=== PATIENT | male | born 1960 ===

== ENCOUNTER → 2018-04-07 | Outpatient (CLI) | payer BC ==
[~2018-04-07] MED LIST: ALBU90OI INH; Advair Hfa 230-12 GM; Aspirin EC81 MG PO; Flomax0.4 MG PO; LOSA25 PO; METO25ER PO; METO50 PO
[2018-04-07 15:02] LABS: BASOPHILS ABSOLUTE AUTO 0.03 K/mm3 (0.00-0.23); BASOPHILS PERCENT AUTO 1 % (0-2); EOSINOPHILS ABSOLUTE AUTO 0.05 K/mm3 (0.00-0.68); EOSINOPHILS PERCENT AUTO 1 % (0-6); Hematocrit 47.1 % (37.0-53.0); IMMATURE GRAN ABSOLUTE AUTO 0.02 K/mm3 (0.00-0.10); IMMATURE GRAN PERCENT AUTO 0 % (0-1); LYMPHOCYTES ABSOLUTE AUTO 1.79 K/mm3 (0.84-5.20); LYMPHOCYTES PERCENT AUTO 34 % (21-46); MONOCYTES PERCENT AUTO 10 % (4-13); Mean Corpuscular HGB 32.1 pg (26.0-34.0); Mean Corpuscular Volume 94 fL (80-100); Mean Platelet Volume 9.2 fL (9.1-12.4); NEUTROPHILS ABSOLUTE AUTO 2.89 K/mm3 (1.96-9.15); NEUTROPHILS PERCENT AUTO 55 % (41-73); Platelet Count 228 K/mm3 (150-400); RDW Coefficient Variation 12.8 % (11.7-14.2); RDW Standard Deviation 44.2 fL (35.1-46.3); Red Blood Cell Count 4.99 M/mm3 (4.30-5.90); White Blood Cell Count 5.28 K/mm3 (4.00-11.30)
[2018-04-07 16:20] LABS: Albumin, Blood 3.5 g/dL (3.4-5.0); Albumin/Globulin Ratio 0.9 (0.8-1.8); Alk Phos 55 U/L (50-136); Anion Gap 9 mmol/L (6-16); Aspartate Aminotrans (AST/SGOT 52 U/L (12-37); Bilirubin, Total 0.3 mg/dL (0.1-1.0); Blood Urea Nitrogen 14 mg/dL (8-24); Bun/Creatinine Ratio 17.6 (12.0-20.0); CHOL/HDL RATIO 3.8; CO2, Blood 24 mmol/L (21-32); Calcium, Blood 7.6 mg/dL (8.5-10.1); Chloride, Blood 110 mmol/L (98-108); Cholesterol 158 mg/dL (50-200); Free Thyroxine 0.91 ng/dL (0.70-1.60); Globulin, Blood 3.9 g/dL (2.2-4.0); Glomerular Filtration Rate >60 (60-); Glucose, Blood 84 mg/dL (70-99); HDL Cholesterol 42 mg/dL (>39); LDL/HDL RATIO 1.9; Low Density Lipoprotein Chol 80 mg/dL (0-110); Potassium, Blood 3.9 mmol/L (3.5-5.5); Sodium, Blood 143 mmol/L (136-145); Total Protein, Blood 7.4 g/dL (6.4-8.2); Triglycerides 178 mg/dL (30-160); Very Low Density Lipoprot Chol 35 mg/dL (6-32)
[2018-04-07 16:32] LABS: Alanine Aminotransfer (ALT/SGP 58 U/L (12-78)
[2018-04-07 17:13] LABS: Appearance, Urine Turbid (Clear); Bilirubin, Urine Neg (Neg); Blood, Urine Neg (Neg); Color, Urine Yellow (P-Yellow); Glucose Qualitative, Urine Neg (Neg); Ketones, Urine Neg (Neg); Leukocyte Esterase, Urine Neg (Neg); Nitrite, Urine Neg (Neg); Protein, Urine Neg (Neg); Urobilinogen, Urine NORM (Normal)
[2018-04-07 17:21] LABS: Bacteria Not Seen /hpf; Red Blood Cells, Urine Not Seen /hpf (0-2); Squamous Epithelial Cells Not Seen /hpf (Few); White Blood Cells, Urine Not Seen /hpf (0-5)
== END | disposition home or self-care (01) ==
LOC: LAB 14:39 → LAB SHORT 14:39
PROVIDERS: Hospitalist
DX: Z12.5 Encounter for screening for malignant neoplasm of prostate (principal); I10 Essential (primary) hypertension; R73.9 Hyperglycemia, unspecified; R30.0 Dysuria
CPT/HCPCS: 80053; 80061; 81001; 83036; 84439; 84443; 85025; G0103

== ENCOUNTER 2018-04-28 22:01 | Emergency (ER) | payer BC ==
[~2018-04-28] VITALS: Ht 175.3 cm; Wt 83.9 kg
[~2018-04-28 22:01] MED LIST changes: -Flomax0.4 MG PO; -METO25ER PO
[2018-04-28 22:42] LABS: Source, Urine Clean Catch
[2018-04-28 22:56] LABS: Bilirubin, Urine Neg (Neg); Blood, Urine 5+ (Neg); Glucose Qualitative, Urine Neg (Neg); Ketones, Urine Neg (Neg); Leukocyte Esterase, Urine Neg (Neg); Nitrite, Urine Neg (Neg); Protein, Urine Neg (Neg); Specific Gravity, Urine 1.005 (1.003-1.022); Urobilinogen, Urine NORM (Normal)
[2018-04-28 23:09] LABS: Appearance, Urine Clear (Clear); Color, Urine Yellow (P-Yellow)
[2018-04-28] MEDS ORDERED: METO25ER PO (23:15)
[2018-04-28 23:29] LABS: White Blood Cells, Urine 0-2 /hpf (0-5)
[2018-04-28 23:30] LABS: Bacteria Few /hpf; Squamous Epithelial Cells Rare /hpf (Few)
[2018-04-28] MEDS ORDERED: Flomax0.4 MG PO (23:41)
== END 2018-04-28 23:53 | disposition home or self-care (01) ==
LOC: ER 22:01
PROVIDERS: Emergency Medicine
DX: R33.9 Retention of urine, unspecified (principal); J45.909 Unspecified asthma, uncomplicated; I10 Essential (primary) hypertension; Z79.899 Other long term (current) drug therapy
CPT/HCPCS: 51702; 81001; 99283

== ENCOUNTER 2020-11-24 07:15 | Day surgery (SDC) | payer OTHER ==
[~2020-11-24 07:15] MED LIST changes: +AMBIEN10 MG PO; +Ativan1 MG PO; +Flomax0.4 MG PO; +LOSARTAN POTASS50 M1 PO; +METO25ER PO; +PARO20 PO; +POTA10T PO; +TAMS.4ER PO
--- NOTE | 2020-11-24 08:02 | NUR ---
History, Chart, Medications and Allergies reviewed before start of procedure. Lungs clear T/O to Auscultation. Pre-Op teaching done. Pt verbalizes understanding. Patient States Post-Procedure ride home has been arranged. Patient states colon prep results clear. PT REPORTS HAVING INCREASED DIZZINESS AND FEELING DEHYDRATED.
--- NOTE | 2020-11-24 08:52 | NUR ---
11/24/20 0852 Liborio Forbes Bite Block Placed. PATIENT DETERMINED TO BE ASA APPROPRIATE FOR PROPOFOL SEDATION PRIOR TO START OF PROCEDURE BY DR. LEON. 3-LEAD EKG REVIEWED WITH PHYSICIAN PRIOR TO START OF PROCEDURE. Patient to ENDO 1 History, Chart, Medications and Allergies reviewed before start of procedure. MONITOR INTACT WITH CONTINUOUS PULSE OXIMETRY AND INTERMITTENT BP. O2 VIA N/C INTACT THROUGHOUT SEDATION/PROCEDURE.
--- NOTE | 2020-11-24 09:55 | NUR ---
TOOK PATIENT TO STEP WITH RN AND STARTED RECOVERY
--- NOTE | 2020-11-24 10:26 | NUR ---
Discharge instructions reviewed with patient. Patient verbalizes understanding. Copy given to patient to take home. Patient States Post-Procedure ride home has been arranged. Discharged via wheelchair to private car for ride home.
== END 2020-11-24 23:08 | disposition home or self-care (01) ==
LOC: ORSCMMR 07:15 → ORD 09:00 → ORSCMMR 09:00
PROVIDERS: Student in an Organized Health Care Education/Training Program
PROC: 0DB78ZX Excision of Stomach, Pylorus, Via Natural or Artificial Opening Endoscopic, Diagnostic (ICD-10-PCS; principal; 2020-11-24 09:00)
PROC: 0DB98ZX Excision of Duodenum, Via Natural or Artificial Opening Endoscopic, Diagnostic (ICD-10-PCS; principal; 2020-11-24 09:00)
PROC: 0DB48ZX Excision of Esophagogastric Junction, Via Natural or Artificial Opening Endoscopic, Diagnostic (ICD-10-PCS; principal; 2020-11-24 09:00)
PROC: 0DBE8ZX Excision of Large Intestine, Via Natural or Artificial Opening Endoscopic, Diagnostic (ICD-10-PCS; principal; 2020-11-24 09:00)
DX: R19.7 Diarrhea, unspecified (principal); R63.0 Anorexia; K29.80 Duodenitis without bleeding; K29.70 Gastritis, unspecified, without bleeding; K20.90 Esophagitis, unspecified without bleeding; B96.81 Helicobacter pylori [H. pylori] as the cause of diseases classified elsewhere; B37.81 Candidal esophagitis; K44.9 Diaphragmatic hernia without obstruction or gangrene; I10 Essential (primary) hypertension; J45.909 Unspecified asthma, uncomplicated; F41.9 Anxiety disorder, unspecified; Z79.899 Other long term (current) drug therapy
CPT/HCPCS: 88305; 88312; 88342; J2704; J7120

== ENCOUNTER → 2021-03-29 | Outpatient (CLI) | payer OTHER | END | disposition home or self-care (01) | LOC: LAB SHORT 09:45 | PROVIDERS: Hospitalist | DX: R97.20 Elevated prostate specific antigen [PSA] (principal) | CPT/HCPCS: G0103 ==

== ENCOUNTER → 2021-05-17 | Outpatient (CLI) | payer OTHER ==
[2021-05-17 16:46] LABS: Alanine Aminotransfer (ALT/SGP 94 U/L (12-78); Albumin/Globulin Ratio 0.8 (0.8-1.8); Alk Phos 99 U/L (50-136); Anion Gap 8 mmol/L (6-16); Aspartate Aminotrans (AST/SGOT 163 U/L (12-37); Bilirubin, Total 1.2 mg/dL (0.1-1.0); Blood Urea Nitrogen 13 mg/dL (8-24); Bun/Creatinine Ratio 10.7 (12.0-20.0); CO2, Blood 30 mmol/L (21-32); Calcium, Blood 6.7 mg/dL (8.5-10.1); Chloride, Blood 109 mmol/L (98-108); Creatinine, Blood 1.21 mg/dL (0.60-1.20); Ethanol (Alcohol), Blood, Med 296 mg/dL; Globulin, Blood 3.7 g/dL (2.2-4.0); Glomerular Filtration Rate >60 (60-); Glucose, Blood 112 mg/dL (70-99); Potassium, Blood 2.8 mmol/L (3.5-5.5); Sodium, Blood 147 mmol/L (136-145); Total Protein, Blood 6.7 g/dL (6.4-8.2)
[2021-05-17 17:12] LABS: BASOPHILS ABSOLUTE AUTO 0.04 K/mm3 (0.00-0.23); BASOPHILS PERCENT AUTO 1 % (0-2); EOSINOPHILS ABSOLUTE AUTO 0.04 K/mm3 (0.00-0.68); EOSINOPHILS PERCENT AUTO 1 % (0-6); Hematocrit 39.1 % (37.0-53.0); Hemoglobin 13.5 g/dL (13.5-17.5); IMMATURE GRAN ABSOLUTE AUTO 0.05 K/mm3 (0.00-0.10); IMMATURE GRAN PERCENT AUTO 1 % (0-1); LYMPHOCYTES ABSOLUTE AUTO 1.72 K/mm3 (0.84-5.20); LYMPHOCYTES PERCENT AUTO 21 % (21-46); MONOCYTES ABSOLUTE AUTO 0.81 K/mm3 (0.16-1.47); MONOCYTES PERCENT AUTO 10 % (4-13); Mean Corpuscular HGB 33.6 pg (26.0-34.0); Mean Corpuscular HGB Conc 34.5 g/dL (31.5-36.5); Mean Corpuscular Volume 97 fL (80-100); Mean Platelet Volume 10.2 fL (9.1-12.4); NEUTROPHILS ABSOLUTE AUTO 5.44 K/mm3 (1.96-9.15); NEUTROPHILS PERCENT AUTO 67 % (41-73); Platelet Count 135 K/mm3 (150-400); RDW Coefficient Variation 13.2 % (11.7-14.2); RDW Standard Deviation 47.8 fL (35.1-46.3); Red Blood Cell Count 4.02 M/mm3 (4.30-5.90)
== END ==
LOC: LAB 11:00 → LAB SHORT 11:00
PROVIDERS: Hospitalist
DX: I10 Essential (primary) hypertension (principal); F10.10 Alcohol abuse, uncomplicated
CPT/HCPCS: 80053; 85025; G0480

== ENCOUNTER 2021-08-01 16:11 | Emergency (ER) | payer OTHER ==
[~2021-08-01] VITALS: Ht 175.3 cm; Wt 78.0 kg
[2021-08-01 17:32] LABS: BASOPHILS ABSOLUTE AUTO 0.04 K/mm3 (0.00-0.23); BASOPHILS PERCENT AUTO 1 % (0-2); EOSINOPHILS ABSOLUTE AUTO 0.05 K/mm3 (0.00-0.68); EOSINOPHILS PERCENT AUTO 1 % (0-6); Hematocrit 41.3 % (37.0-53.0); Hemoglobin 13.9 g/dL (13.5-17.5); IMMATURE GRAN ABSOLUTE AUTO 0.02 K/mm3 (0.00-0.10); IMMATURE GRAN PERCENT AUTO 0 % (0-1); LYMPHOCYTES ABSOLUTE AUTO 1.28 K/mm3 (0.84-5.20); LYMPHOCYTES PERCENT AUTO 18 % (21-46); MONOCYTES ABSOLUTE AUTO 0.75 K/mm3 (0.16-1.47); MONOCYTES PERCENT AUTO 10 % (4-13); Mean Corpuscular HGB 34.2 pg (26.0-34.0); Mean Corpuscular HGB Conc 33.7 g/dL (31.5-36.5); Mean Corpuscular Volume 102 fL (80-100); Mean Platelet Volume 8.9 fL (9.1-12.4); NEUTROPHILS ABSOLUTE AUTO 5.11 K/mm3 (1.96-9.15); NEUTROPHILS PERCENT AUTO 70 % (41-73); Platelet Count 161 K/mm3 (150-400); RDW Coefficient Variation 12.5 % (11.7-14.2); RDW Standard Deviation 47.2 fL (35.1-46.3); Red Blood Cell Count 4.07 M/mm3 (4.30-5.90); White Blood Cell Count 7.25 K/mm3 (4.00-11.30)
[2021-08-01 17:51] LABS: Alanine Aminotransfer (ALT/SGP 49 U/L (12-78); Albumin, Blood 2.7 g/dL (3.4-5.0); Albumin/Globulin Ratio 0.6 (0.8-1.8); Alk Phos 85 U/L (50-136); Anion Gap 3 mmol/L (6-16); Aspartate Aminotrans (AST/SGOT 85 U/L (12-37); Bilirubin, Total 0.6 mg/dL (0.1-1.0); Blood Urea Nitrogen 17 mg/dL (8-24); Bun/Creatinine Ratio 15.5 (12.0-20.0); CO2, Blood 29 mmol/L (21-32); Calcium, Blood 8.8 mg/dL (8.5-10.1); Chloride, Blood 104 mmol/L (98-108); Globulin, Blood 4.9 g/dL (2.2-4.0); Glomerular Filtration Rate >60 (60-); Glucose, Blood 134 mg/dL (70-99); Potassium, Blood 4.7 mmol/L (3.5-5.5); Sodium, Blood 136 mmol/L (136-145); Total Protein, Blood 7.6 g/dL (6.4-8.2)
[2021-08-01 17:56] LABS: Free Thyroxine 1.17 ng/dL (0.70-1.60)
[2021-08-01 19:26] LABS: U Amphetamine Screen DETECTED; U Barbituate Screen Not Detected; U Benzodiazapine Screen DETECTED; U Buprenorphine Screen Not Detected; U Cannabinoids Screen Not Detected; U Cocaine Screen Not Detected; U Methadone Screen Not Detected; U Methamphetamine Screen DETECTED; U Opiates Screen Not Detected; U Oxycodone Screen DETECTED; U Phencyclidine Screen Not Detected; U Propoxyphene Screen Not Detected
== END 2021-08-01 20:43 | disposition home or self-care (01) ==
LOC: ER 16:11
PROVIDERS: Physician Assistant
DX: R41.0 Disorientation, unspecified (principal); T40.2X5A Adverse effect of other opioids, initial encounter; T42.4X5A Adverse effect of benzodiazepines, initial encounter; R82.5 Elevated urine levels of drugs, medicaments and biological substances; J45.909 Unspecified asthma, uncomplicated; I10 Essential (primary) hypertension; F41.8 Other specified anxiety disorders; Z79.899 Other long term (current) drug therapy; Y92.9 Unspecified place or not applicable
CPT/HCPCS: 36415; 70450; 80053; 83735; 84439; 85025; G0480

== ENCOUNTER → 2022-05-02 | Outpatient (CLI) | payer OTHER ==
[2022-05-02 16:14] LABS: BASOPHILS ABSOLUTE AUTO 0.02 K/mm3 (0.00-0.23); BASOPHILS PERCENT AUTO 0 % (0-2); EOSINOPHILS ABSOLUTE AUTO 0.07 K/mm3 (0.00-0.68); EOSINOPHILS PERCENT AUTO 1 % (0-6); Hematocrit 40.6 % (37.0-53.0); Hemoglobin 14.1 g/dL (13.5-17.5); IMMATURE GRAN ABSOLUTE AUTO 0.04 K/mm3 (0.00-0.10); IMMATURE GRAN PERCENT AUTO 1 % (0-1); LYMPHOCYTES ABSOLUTE AUTO 0.98 K/mm3 (0.84-5.20); LYMPHOCYTES PERCENT AUTO 15 % (21-46); MONOCYTES ABSOLUTE AUTO 0.65 K/mm3 (0.16-1.47); MONOCYTES PERCENT AUTO 10 % (4-13); Mean Corpuscular HGB 32.6 pg (26.0-34.0); Mean Corpuscular HGB Conc 34.7 g/dL (31.5-36.5); Mean Corpuscular Volume 94 fL (80-100); NEUTROPHILS ABSOLUTE AUTO 4.68 K/mm3 (1.96-9.15); NEUTROPHILS PERCENT AUTO 73 % (41-73); RDW Coefficient Variation 12.7 % (11.7-14.2); RDW Standard Deviation 43.7 fL (35.1-46.3); Red Blood Cell Count 4.32 M/mm3 (4.30-5.90); White Blood Cell Count 6.44 K/mm3 (4.00-11.30)
[2022-05-02 16:25] LABS: Albumin, Blood 3.3 g/dL (3.4-5.0); Albumin/Globulin Ratio 0.7 (0.8-1.8); Bilirubin, Total 1.1 mg/dL (0.1-1.0); Bun/Creatinine Ratio 16.7 (12.0-20.0); Calcium, Blood 8.5 mg/dL (8.5-10.1); Creatinine, Blood 0.9 mg/dL (0.60-1.20); Potassium, Blood 3.9 mmol/L (3.5-5.5); Total Protein, Blood 8.3 g/dL (6.4-8.2)
[2022-05-02 16:55] LABS: Mean Platelet Volume 9.8 fL (9.1-12.4); Platelet Count 84 K/mm3 (150-400)
== END | disposition home or self-care (01) ==
LOC: LAB SHORT 16:09 → LAB 16:09
PROVIDERS: Chiropractor
DX: D69.6 Thrombocytopenia, unspecified (principal); R07.9 Chest pain, unspecified
CPT/HCPCS: 80053; 84484; 85025; 85060; 85379

== ENCOUNTER 2022-10-15 11:06 | Emergency (ER) | payer OTHER ==
[~2022-10-15] VITALS: Ht 175.3 cm; Wt 77.1 kg
[2022-10-15] MEDS ORDERED: EUTHYROX50 MC1 PO (12:10)
[2022-10-15] MEDS ORDERED: PROZAC40 MG PO (12:10)
[2022-10-15] MEDS ORDERED: Naltrexone HCl50 MG PO (12:11)
[2022-10-15] MEDS ORDERED: NEURONTIN300 MG PO (12:11)
[2022-10-15] MEDS ORDERED: TRAZ50 PO (12:11)
[2022-10-15] MEDS ORDERED: VALSARTAN40 MG PO (12:12)
[2022-10-15 12:35] LABS: Hematocrit 38.1 % (37.0-53.0); Mean Corpuscular HGB Conc 34.1 g/dL (31.5-36.5); Mean Corpuscular Volume 97 fL (80-100); Mean Platelet Volume 9.9 fL (9.1-12.4); Platelet Count 84 K/mm3 (150-400); RDW Coefficient Variation 13.1 % (11.7-14.2); RDW Standard Deviation 46.6 fL (35.1-46.3); Red Blood Cell Count 3.94 M/mm3 (4.30-5.90); White Blood Cell Count 7.01 K/mm3 (4.00-11.30)
[2022-10-15 12:49] LABS: Alanine Aminotransfer (ALT/SGP 85 U/L (12-78); Albumin, Blood 3.3 g/dL (3.4-5.0); Albumin/Globulin Ratio 0.8 (0.8-1.8); Alk Phos 71 U/L (50-136); Anion Gap 10 mmol/L (6-16); Aspartate Aminotrans (AST/SGOT 134 U/L (12-37); Bilirubin, Total 2.1 mg/dL (0.1-1.0); Blood Urea Nitrogen 15 mg/dL (8-24); CO2, Blood 25 mmol/L (21-32); Calcium, Blood 7.9 mg/dL (8.5-10.1); Chloride, Blood 102 mmol/L (98-108); Creatinine, Blood 2.14 mg/dL (0.60-1.20); Ethanol (Alcohol), Blood, Med <3 mg/dL; Globulin, Blood 4.3 g/dL (2.2-4.0); Glomerular Filtration Rate 35 (60-); Glucose, Blood 142 mg/dL (70-99); Potassium, Blood 3.3 mmol/L (3.5-5.5); Sodium, Blood 137 mmol/L (136-145); Total Protein, Blood 7.6 g/dL (6.4-8.2)
[2022-10-15 13:01] LABS: BASOPHILS PERCENT MAN 0 % (0-2); EOSINOPHILS ABSOLUTE MAN 0.07 K/mm3 (0.00-0.68); EOSINOPHILS PERCENT MAN 1 % (0-6); LYMPHOCYTES ABSOLUTE MAN 0.56 K/mm3 (0.84-5.20); LYMPHOCYTES PERCENT MAN 8 % (21-46); MONOCYTES ABSOLUTE MAN 0.21 K/mm3 (0.16-1.47); MONOCYTES PERCENT MAN 3 % (4-13); NEUTROPHILS ABSOLUTE MAN 6.16 K/mm3 (1.96-9.15); SEG NEUTROPHILS PERCENT MAN 88 % (41-73); TOTAL CELLS COUNTED 100
[2022-10-15 13:56] LABS: U Amphetamine Screen Not Detected; U Barbituate Screen Not Detected; U Benzodiazapine Screen Not Detected; U Buprenorphine Screen Not Detected; U Cannabinoids Screen Not Detected; U Cocaine Screen Not Detected; U Methadone Screen Not Detected; U Methamphetamine Screen Not Detected; U Opiates Screen Not Detected; U Oxycodone Screen DETECTED; U Phencyclidine Screen Not Detected; U Propoxyphene Screen Not Detected
[2022-10-15 14:04] LABS: Source, Urine Clean Catch
[2022-10-15 14:15] LABS: Bilirubin, Urine Neg (Neg); Blood, Urine 2+ (Neg); Glucose Qualitative, Urine 1+ (Neg); Ketones, Urine Neg (Neg); Leukocyte Esterase, Urine 1+ (Neg); Nitrite, Urine Neg (Neg); Protein, Urine 2+ (Neg); Urobilinogen, Urine 1+ (Normal)
[2022-10-15 14:23] LABS: Amorphous Light (0-Heavy); Appearance, Urine Clear (Clear); Bacteria Few /hpf; Color, Urine Yellow (P-Yellow); Red Blood Cells, Urine 0-2 /hpf (0-2); Squamous Epithelial Cells Rare /hpf (Few)
[2022-10-15 14:45] VITALS: BP 145/98
== END 2022-10-15 14:59 | disposition home or self-care (01) ==
LOC: ER 11:06
PROVIDERS: Emergency Medicine
DX: R55 Syncope and collapse (principal); R79.89 Other specified abnormal findings of blood chemistry; E87.6 Hypokalemia; R11.2 Nausea with vomiting, unspecified; R19.7 Diarrhea, unspecified; I10 Essential (primary) hypertension; J45.909 Unspecified asthma, uncomplicated; Z79.899 Other long term (current) drug therapy
CPT/HCPCS: 80053; 81001; 82570; 83735; 83880; 84300; 85025; 93005; 93010; 96361; 96365; 99284-25; A9270; G0480; J3475; J7030; J7120

== ENCOUNTER 2023-01-26 19:39 | Inpatient (IN) | payer OTHER ==
[~2023-01-26] VITALS: Ht 175.3 cm; Wt 82.6 kg
[~2023-01-26 19:39] MED LIST changes: +EUTHYROX50 MC1 PO; +NEURONTIN300 MG PO; +Naltrexone HCl50 MG PO; +PROZAC40 MG PO; +TRAZ50 PO; +VALSARTAN40 MG PO
[2023-01-26 22:43] LABS: Source, Urine Clean Catch
[2023-01-26 22:45] LABS: Blood, Urine Neg (Neg); Glucose Qualitative, Urine Neg (Neg); Ketones, Urine Neg (Neg); Leukocyte Esterase, Urine 1+ (Neg); Nitrite, Urine Neg (Neg); Protein, Urine 2+ (Neg); Urobilinogen, Urine 3+ (Normal)
[2023-01-26 22:47] LABS: BASOPHILS ABSOLUTE AUTO 0.03 K/mm3 (0.00-0.23); BASOPHILS PERCENT AUTO 0 % (0-2); EOSINOPHILS ABSOLUTE AUTO 0.06 K/mm3 (0.00-0.68); EOSINOPHILS PERCENT AUTO 1 % (0-6); Hematocrit 35.8 % (37.0-53.0); Hemoglobin 12.3 g/dL (13.5-17.5); IMMATURE GRAN ABSOLUTE AUTO 0.04 K/mm3 (0.00-0.10); IMMATURE GRAN PERCENT AUTO 1 % (0-1); LYMPHOCYTES ABSOLUTE AUTO 1.24 K/mm3 (0.84-5.20); LYMPHOCYTES PERCENT AUTO 15 % (21-46); MONOCYTES ABSOLUTE AUTO 1.35 K/mm3 (0.16-1.47); MONOCYTES PERCENT AUTO 16 % (4-13); Mean Corpuscular HGB 33.4 pg (26.0-34.0); Mean Corpuscular HGB Conc 34.4 g/dL (31.5-36.5); Mean Corpuscular Volume 97 fL (80-100); Mean Platelet Volume 8.9 fL (9.1-12.4); NEUTROPHILS ABSOLUTE AUTO 5.76 K/mm3 (1.96-9.15); NEUTROPHILS PERCENT AUTO 68 % (41-73); Platelet Count 109 K/mm3 (150-400); RDW Coefficient Variation 14.6 % (11.7-14.2); RDW Standard Deviation 52.1 fL (35.1-46.3); Red Blood Cell Count 3.68 M/mm3 (4.30-5.90); White Blood Cell Count 8.48 K/mm3 (4.00-11.30)
[2023-01-26 23:02] LABS: Appearance, Urine Clear (Clear); Bilirubin, Urine 1+ (Neg); Color, Urine Amber (P-Yellow)
[2023-01-26 23:03] LABS: Bacteria Few /hpf; Red Blood Cells, Urine 0-2 /hpf (0-2); Squamous Epithelial Cells Few /hpf (Few); White Blood Cells, Urine 0-2 /hpf (0-5)
[2023-01-26 23:08] LABS: Albumin, Blood 2.8 g/dL (3.4-5.0); Albumin/Globulin Ratio 0.6 (0.8-1.8); Bilirubin, Total 1.5 mg/dL (0.1-1.0); Bun/Creatinine Ratio 9.8 (12.0-20.0); Calcium, Blood 7.6 mg/dL (8.5-10.1); Creatinine, Blood 0.81 mg/dL (0.60-1.20); Globulin, Blood 4.7 g/dL (2.2-4.0); Potassium, Blood 3.8 mmol/L (3.5-5.5); Total Protein, Blood 7.5 g/dL (6.4-8.2)
[2023-01-27] VITALS (11 sets, daily range): BP systolic 118–171; BP diastolic 76–113
[2023-01-27 00:53] LABS: U Benzodiazapine Screen DETECTED
[2023-01-27 00:54] LABS: U Amphetamine Screen Not Detected; U Barbituate Screen Not Detected; U Cannabinoids Screen Not Detected; U Cocaine Screen Not Detected; U Methadone Screen Not Detected; U Methamphetamine Screen Not Detected; U Opiates Screen Not Detected; U Oxycodone Screen Not Detected; U Phencyclidine Screen Not Detected; U Propoxyphene Screen Not Detected
[2023-01-27 00:55] LABS: U Buprenorphine Screen DETECTED
[2023-01-27 05:07] LABS: BASOPHILS ABSOLUTE AUTO 0.03 K/mm3 (0.00-0.23); BASOPHILS PERCENT AUTO 0 % (0-2); EOSINOPHILS ABSOLUTE AUTO 0.02 K/mm3 (0.00-0.68); EOSINOPHILS PERCENT AUTO 0 % (0-6); Hemoglobin 11.9 g/dL (13.5-17.5); IMMATURE GRAN ABSOLUTE AUTO 0.04 K/mm3 (0.00-0.10); IMMATURE GRAN PERCENT AUTO 1 % (0-1); LYMPHOCYTES ABSOLUTE AUTO 1.03 K/mm3 (0.84-5.20); LYMPHOCYTES PERCENT AUTO 14 % (21-46); MONOCYTES ABSOLUTE AUTO 1.41 K/mm3 (0.16-1.47); MONOCYTES PERCENT AUTO 19 % (4-13); Mean Corpuscular HGB 33.5 pg (26.0-34.0); Mean Corpuscular Volume 99 fL (80-100); Mean Platelet Volume 8.8 fL (9.1-12.4); NEUTROPHILS ABSOLUTE AUTO 5.11 K/mm3 (1.96-9.15); NEUTROPHILS PERCENT AUTO 67 % (41-73); Platelet Count 90 K/mm3 (150-400); RDW Coefficient Variation 14.7 % (11.7-14.2); RDW Standard Deviation 54.2 fL (35.1-46.3); Red Blood Cell Count 3.55 M/mm3 (4.30-5.90); White Blood Cell Count 7.64 K/mm3 (4.00-11.30)
--- NOTE | 2023-01-27 05:15 | NUR ---
SHIFT SUMMARY 62 YR M ADMITTED LATE THIS SHIFT FOR INTRACTABLE BACK PAIN. FULL CODE. PT IS HAVING A GREAT DEAL OF PAIN IN HIS BACK WELL MUSCLE SPASMS. IT WAS DIFFICULT TO DO AN ASSESSMENT ON HIM EVEN TOUCHING HIM CAUSES PAIN. HE WAS GIVEN TORIDOL AND ATIVAN WHICH APPEARED TO RELAX HIM SOME, BUT DOES NOT APPEAR TO BE FULLY CONTROLLING HIS PAIN.
[2023-01-27 05:38] LABS: Albumin, Blood 2.7 g/dL (3.4-5.0); Albumin/Globulin Ratio 0.6 (0.8-1.8); Bilirubin, Total 2.1 mg/dL (0.1-1.0); Bun/Creatinine Ratio 8.9 (12.0-20.0); Calcium, Blood 7.2 mg/dL (8.5-10.1); Creatinine, Blood 0.9 mg/dL (0.60-1.20); Globulin, Blood 4.5 g/dL (2.2-4.0); Potassium, Blood 3.7 mmol/L (3.5-5.5); Total Protein, Blood 7.2 g/dL (6.4-8.2)
[2023-01-27 12:17] LABS: Source, Urine Clean Catch
[2023-01-27 12:40] LABS: International Normalized Ratio 1.41; Prothrombin Time Results 14.5 Sec (9.7-11.5)
[2023-01-27 12:41] LABS: Appearance, Urine Clear (Clear); Bilirubin, Urine Neg (Neg); Blood, Urine Neg (Neg); Color, Urine Yellow (P-Yellow); Glucose Qualitative, Urine Neg (Neg); Ketones, Urine 1+ (Neg); Leukocyte Esterase, Urine Neg (Neg); Nitrite, Urine Neg (Neg); Protein, Urine 1+ (Neg); Urobilinogen, Urine 1+ (Normal)
[2023-01-27 12:48] LABS: Magnesium, Blood 0.9 mg/dL (1.6-2.4); Phosphorus, Blood 1.9 mg/dL (2.5-4.9)
[2023-01-27 13:44] LABS: Influenza A, PCR NEGATIVE (NEGATIVE); Influenza B, PCR NEGATIVE (NEGATIVE); Resp Syncytial Virus, PCR NEGATIVE (NEGATIVE); SARS-Cov-2 (COVID-19) PCR, MMC NEGATIVE (NEGATIVE)
--- NOTE | 2023-01-27 18:18 | NUR ---
SHIFT SUMMARY PT AxOx4. PLEASANT AND COOPERATIVE WITH CARE. CALLS APPROPRIATELY AND ABLE TO MAKE NEEDS KNOWN. PT HAS BEEN IN HIGH RATED PAIN T/O THIS SHIFT. MEDICATED PER EMAR WITH REPORTED RELIEF. PT HAD A CRITICAL LOW MAG LAB, PROVIDER NOTIFIED AND IV REPLACMENT WAS ADMINISTERED. PT'S BP AND HR HAVE BEEN ELEVATED TODAY. MEDICATED PER EMAR WITH FOLLOW UP IMPROVEMENT NOTED. PT ALSO HAD A FEVER TODAY, MEDICATED AND ORAL TEMP REDUCED DOWN TO 101.1 BY EVENING. PT HAD SIGNIFICANT ABDOMINAL DISTENTION AND FIRMNESS. NOTIFIED, AND BOWEL CARE INTIATED AFTER PT REPORTED THAT HE MIGHT BE "BACKED UP" AFTER NO BM'S x1 DAY. PT DID HAVE SOME LOOSE STOOLS THIS AFTERNOON. HE STATES THAT HE NORMALLY HAS SEVERAL LOOSE BM'S PER DAY AND HAS UNDIAGNOSED IBS. PT ADMITTED TO REGULAR HEAVY ALCOHOL INTAKE WITH LAST DRINK BEING AT 01/26/23 AT APPROX 1400. CIWA PROTOCOL STARTED. PT'S CIWA SCORE= 10. MEDICATED PER EMAR. PT IS CURRENTLY IN MRI FOR FURTHER IMAGING OF SPINE. FAMILY IN ROOM T/O THE DAY, UPDATED ON PLAN OF CARE.
[2023-01-28] VITALS (51 sets, daily range): BP systolic 83–137; BP diastolic 54–109
--- NOTE | 2023-01-28 00:23 | NUR ---
TRANSFER TO ICU5: PT TRANSFERRED TO ICU 5 VIA BED WITH 2 RN'S AT BEDSIDE. PT TREMULOUS WHEN AROUSED AND HAS BASELINE JERKY MOVEMENTS WHILE SLEEPING. PT WAS RECENTLY MEDICATED WITH ATIVAN; IS DIFFICULT TO AROUSE AND DOEN'T ANSWER QUESTIONS BUT DRIFTS BACK TO SLEEP QUICKLY. LS CLEAR BILAT UPPER LOBES AND VERY DIMINSHED BILAT LOWER LOBES. TEMP 100.4, CIWA 13. HEART SOUND S1 AND S2 AUSCULTATED WITH MONITOR SHOWING ST WITH HR 120-140. PRECEDEX STARTED AT 0.2MCG/KG/HR. ABD VERY DISTENDED AND FIRM WITH BTX4 BUT SLIGHTLY HYPOACTIVE. BRUISE NOTED TO R LOWER FLANK. BLADDER SCAN DONE AND READING 125CC. SENG, PT'S S.O. AT BEDSIDE.
--- NOTE | 2023-01-28 02:00 | NUR ---
O2: PT MOUTH BREATHING AND DESAT'S TO 87% AND STAYS. AROUSES WITH PAINFUL STIMULI, BUT FALLS BACK ASLEEP QUICKLY. O2 PLACED AT 2L N/C.
[2023-01-28 05:02] LABS: Albumin, Blood 2.4 g/dL (3.4-5.0); Anion Gap 7 mmol/L (6-16); Blood Urea Nitrogen 16 mg/dL (8-24); Bun/Creatinine Ratio 9.8 (12.0-20.0); CO2, Blood 24 mmol/L (21-32); Calcium, Blood 7.2 mg/dL (8.5-10.1); Chloride, Blood 107 mmol/L (98-108); Creatinine, Blood 1.64 mg/dL (0.60-1.20); Glomerular Filtration Rate 47 (60-); Glucose, Blood 147 mg/dL (70-99); Magnesium, Blood 2.1 mg/dL (1.6-2.4); Phosphorus, Blood 1.8 mg/dL (2.5-4.9); Potassium, Blood 3.8 mmol/L (3.5-5.5); Sodium, Blood 138 mmol/L (136-145)
--- NOTE | 2023-01-28 06:10 | NUR ---
[facility] AND CO ANXIETY. PT WAS MED BY ANOTHER RN Benny BURTON. PT NOTED LATER TO HAVE MORE CONFUSION, BUT ALSO INTERMITTANTLY SOMNOLENT, AND REACHING IN THE AIR & HAVING CONVERSATION W HIMSELF. THIS AM, PT KNOWS PERSON, PLACE & SITUATION, BUT DISORIENTED TO TIME. VERY MINIMAL TREMOR. WILL MED W LIBRIUM 25MG. PT CALLED THIS AM W URGE TO VOID, ASSISTED W URINAL & VOIDED 200CC SILVESTRE/ORANGE URINE, SEEMS LESS CONCENTRATED THAN EARLIER. PT STATES HES READY FOR A TUNAFISH SANDWICH AND SOME CHICKEN. CONT ON RA, NO PAIN MEDS TONOC.
--- NOTE | 2023-01-28 06:22 | NUR ---
SUMMARY: PT WAS TRANSFERRED DOWN HERE FOR HIGH CIWA AND WAS STARTED ON LOW DOSE PRECEDEX WHICH HAS BEEN OFF SINCE 439. PT DIFFICULT TO AROUSE; STARTLES WHEN TURNED, BUT FALLS BACK ASLEEP QUICKLY. BLADDER SCAN DONE WITH ONLY 178CC THIS AM. ABD VERY DISTENDED AND FIRM. BLOOD CX'S BOTH GROWING GRAM + COCCI IN CLUSTERS; NOTIFIED.
--- NOTE | 2023-01-28 18:57 | NUR ---
Shift summary. Pt rested in bed throughout much of shift. CIWA scores improved throughout the day. Pt up to chair late afternoon to work with PT. Pt initially on 02 via NC at 2L, able to titrate off this afternoon. Pt c/of double vision during PT assessment, neuro assessment done. Dr. Paez notified and stat head CT completed. No other changes noted, pt condition stable. Pt ate dinner in chair, back to bed w/out difficutly afterwards. No other acute events this shift, see chart for further details. Will report off to nightshift RN.
--- NOTE | 2023-01-28 21:30 | NUR ---
PT SLEPT THROUGH BEDSIDE SHIFT REPORT, BUT NOW AWAKE, JOKING AND STATES HE SEES THINGS HE KNOWS ARE NOT THERE. PLEASANT AND COOPERATIVE, NOTED W TREMORS. ABLE TO SWALLOW PILLS WO DIFFICULTY. STATES HE WOULD LIKE SNACKS. ON RA, W GOOD COUGH EFFORT. STATES HE HAS BACK PAIN WHEN COUGHING, BUT OTHERWISE DENIES PAIN.
--- NOTE | 2023-01-28 22:30 | NUR ---
ASSISTED TO SIT SIDE OF BED, THEN UP TO [facility] W WALKER. UP FOR APPROX 20 MIN, AND ONLY VOIDED 50CC, OF ORANGE COLORED URINE. CO ABD DISCOMFORT R/T DISTENSION. BLADDER SCANNED FOR 199CC, WILL CONT TO MONITOR. CONT ON RA. WATCHING TV W SO, CALL LIGHT IN REACH.
[2023-01-29] VITALS (21 sets, daily range): BP systolic 91–136; BP diastolic 60–116
[2023-01-29 04:01] LABS: Hemoglobin 10.5 g/dL (13.5-17.5); Mean Corpuscular HGB 33.4 pg (26.0-34.0); Mean Corpuscular HGB Conc 33.9 g/dL (31.5-36.5); Mean Corpuscular Volume 99 fL (80-100); Mean Platelet Volume 9.9 fL (9.1-12.4); Platelet Count 86 K/mm3 (150-400); RDW Coefficient Variation 14.2 % (11.7-14.2); RDW Standard Deviation 51.4 fL (35.1-46.3); Red Blood Cell Count 3.14 M/mm3 (4.30-5.90); White Blood Cell Count 7.48 K/mm3 (4.00-11.30)
[2023-01-29 04:28] LABS: BAND PERCENT MAN 6 % (0-8); BASOPHILS ABSOLUTE MAN 0.07 K/mm3 (0.00-0.23); BASOPHILS PERCENT MAN 1 % (0-2); EOSINOPHILS ABSOLUTE MAN 0.22 K/mm3 (0.00-0.68); EOSINOPHILS PERCENT MAN 3 % (0-6); LYMPHOCYTES ABSOLUTE MAN 0.67 K/mm3 (0.84-5.20); LYMPHOCYTES PERCENT MAN 9 % (21-46); METAMYELOCYTE ABSOLUTE MAN 0.07 K/mm3 (0.00-0.00); METAMYELOCYTE PERCENT MAN 1 % (0-0); MONOCYTES ABSOLUTE MAN 1.42 K/mm3 (0.16-1.47); MONOCYTES PERCENT MAN 19 % (4-13); NEUTROPHILS ABSOLUTE MAN 5.01 K/mm3 (1.96-9.15); SEG NEUTROPHILS PERCENT MAN 61 % (41-73); TOTAL CELLS COUNTED 100
[2023-01-29 05:39] LABS: Albumin, Blood 2.2 g/dL (3.4-5.0); Albumin/Globulin Ratio 0.5 (0.8-1.8); Bilirubin, Total 1.5 mg/dL (0.1-1.0); Bun/Creatinine Ratio 11.6 (12.0-20.0); Calcium, Blood 6.8 mg/dL (8.5-10.1); Creatinine, Blood 2.41 mg/dL (0.60-1.20); Globulin, Blood 4.1 g/dL (2.2-4.0); Potassium, Blood 3.6 mmol/L (3.5-5.5); Total Protein, Blood 6.3 g/dL (6.4-8.2)
--- NOTE | 2023-01-29 17:01 | NUR ---
SHIFT SUMMARY NO ACUTE CHANGES THIS SHIFT. PT HAS BEEN ABLE TO ANSWER MOST QUESTIONS APPROPRIATELY AND FOLLOW COMMANDS. PT WITH PERIODS OF INCREASED CONFUSION AND VISUAL HALLUCINATIONS. PT SLEEPING OFF AND ON THROUGHOUT THE SHIFT. PT CONTINUES WITH TREMORS WITH MOVEMENT. PT UP TO RECLINER CHAIR WITH OT THIS AFTERNOON. D5 1/2 NS INFUSING AT 100 ML/HR AND NS TKO. PT TAKING IN PO INTAKE WELL. PT ABLE TO USE URINAL TO VOID WITH ASSISTANCE. ATTENDS IN PLACE. VITAL SIGNS HAVE REMAINED STABLE. PT SISTER AT BEDSIDE FOR VISIT THIS SHIFT. WILL CONTINUE TO MONITOR AND REPORT OFF TO ONCOMING RN.
[2023-01-30] VITALS (11 sets, daily range): BP systolic 99–129; BP diastolic 60–87
[2023-01-30 03:58] LABS: BASOPHILS ABSOLUTE AUTO 0.03 K/mm3 (0.00-0.23); BASOPHILS PERCENT AUTO 0 % (0-2); EOSINOPHILS ABSOLUTE AUTO 0.13 K/mm3 (0.00-0.68); EOSINOPHILS PERCENT AUTO 2 % (0-6); Hematocrit 32.5 % (37.0-53.0); Hemoglobin 10.8 g/dL (13.5-17.5); IMMATURE GRAN ABSOLUTE AUTO 0.06 K/mm3 (0.00-0.10); IMMATURE GRAN PERCENT AUTO 1 % (0-1); LYMPHOCYTES ABSOLUTE AUTO 0.64 K/mm3 (0.84-5.20); LYMPHOCYTES PERCENT AUTO 9 % (21-46); MONOCYTES ABSOLUTE AUTO 1.28 K/mm3 (0.16-1.47); MONOCYTES PERCENT AUTO 18 % (4-13); Mean Corpuscular HGB 33.4 pg (26.0-34.0); Mean Corpuscular HGB Conc 33.2 g/dL (31.5-36.5); Mean Corpuscular Volume 101 fL (80-100); NEUTROPHILS ABSOLUTE AUTO 4.99 K/mm3 (1.96-9.15); NEUTROPHILS PERCENT AUTO 70 % (41-73); Platelet Count 89 K/mm3 (150-400); RDW Coefficient Variation 14.6 % (11.7-14.2); RDW Standard Deviation 53.2 fL (35.1-46.3); Red Blood Cell Count 3.23 M/mm3 (4.30-5.90); White Blood Cell Count 7.13 K/mm3 (4.00-11.30)
--- NOTE | 2023-01-30 05:41 | NUR ---
SHIFT SUMMERY PT IS ALERT, CONFUSED AND AGITATED AT TIMES BUT PLEASANT AND EASILY REDIRECTABLE. MEDICATED PER EMAR FOR ETOH W/DRAWAL AND PAIN. HE HAS BEEN SR-ST, BP WNL. HE HAS BEEN AFEBRILE. HE IS ON ROOM AIR W/OXYGEN SAT >90%. HE HAS GENERALIZED WEAKNESS BUT CAN MADRIGAL. ABLE TO MAKE NEEDS KNOWN. HE HAS HAD NO ACUTE CHANGES OVERNIGHT.
[2023-01-30 07:32] LABS: Source, Urine Foley catheter
[2023-01-30 07:37] LABS: Appearance, Urine Hazy (Clear); Bilirubin, Urine Neg (Neg); Blood, Urine 4+ (Neg); Color, Urine Yellow (P-Yellow); Glucose Qualitative, Urine Neg (Neg); Ketones, Urine Neg (Neg); Leukocyte Esterase, Urine Neg (Neg); Nitrite, Urine Neg (Neg); Protein, Urine 2+ (Neg); Urobilinogen, Urine 2+ (Normal)
[2023-01-30 07:47] LABS: Amorphous Light (0-Heavy)
[2023-01-30 07:48] LABS: Bacteria Mod /hpf; Squamous Epithelial Cells Rare /hpf (Few)
[2023-01-30 07:48] LABS: Vancomycin, Trough 14.2 ug/mL (5.0-10.0)
[2023-01-30 07:50] LABS: Renal Epithelial Rare /hpf (0-Rare)
--- NOTE | 2023-01-30 16:49 | NUR ---
SHIFT SUMMARY PT CONTINUES TO BE TREMULOUS AND CONFUSED WHEN AWAKE. PT IS ABLE TO ANSWER SOME SIMPLE QUESTIONS, BUT QUICKLY FALLS BACK TO SLEEP WHEN UNDISTURBED. PT MED WITH LIBRIUM PRN THIS SHIFT. PT WITH CONTINUED UPPER AIRWAY WHEEZING DESPITE NEBS PER RT. DR NINA AWARE. VITAL SIGNS HAVE REMAINED STABLE WITH SPO2 >90% ON ROOM AIR THROUGHOUT THE DAY. PT WITH DARK BROWN SPUTUM PRODUCTION WITH COUGH. PT WITH GOOD COUGH EFFORT. LR INFUSING AT 100 ML/HR AND NS TKO. MARY REMAINS IN PLACE WITH MINIMAL AMOUNT OF DARK YELLOW OUTPUT NOTED. ABD REMAINS DISTENDED. NO FAMILY VISITS THIS SHIFT. PT BACK TO ICU STATUS THIS AFTERNOON PER DR NINA DUE TO WORSENING RENAL FUNCTION AND UNKNOWN SOURCE OF INFECTION. WILL CONTINUE TO MONITOR AND REPORT OFF TO ONCOMING RN.
--- NOTE | 2023-01-30 22:31 | NUR ---
TRANSFER OF CARE ASSUMED CARE OF PT AT 1900. AT 2230 CARE TRANSFERED TO SHAHID YATES. REPORT GIVEN. PT VITALS STABLE.
--- NOTE | 2023-01-30 23:03 | NUR ---
ASSUMPTION OF CARE: ASSUMED CARE OF PT AND RECIEVED REPORT FROM JAYLEEN YATES. AT THIS TIME PT REMAINS IN BED, SLEEPING; PT AROUSES TO VERBAL STIMULI AFTER A COUPLE OF ATTEMPS BUT BACK TO SLEEP EASILY. AUDIBLE WHEEZES WHILE PT SLEEPS NOTED; SPO2 PERIODICALLY DROPPING DOWN 87-88 AND SLOWLY RECOVERING BACK TO 90-92. AT THIS TIME NC PLACED WITH 2LPM, SPO2 96<. PT ST ON MONITOR WITH HR 110'S, SBP 120'S. PT VERY PAINFUL WITH REPOSITIONING.
[2023-01-31] VITALS (23 sets, daily range): BP systolic 106–133; BP diastolic 67–99
[2023-01-31 04:23] LABS: BASOPHILS ABSOLUTE AUTO 0.02 K/mm3 (0.00-0.23); BASOPHILS PERCENT AUTO 0 % (0-2); EOSINOPHILS ABSOLUTE AUTO 0.03 K/mm3 (0.00-0.68); EOSINOPHILS PERCENT AUTO 0 % (0-6); Hemoglobin 10.2 g/dL (13.5-17.5); IMMATURE GRAN ABSOLUTE AUTO 0.08 K/mm3 (0.00-0.10); IMMATURE GRAN PERCENT AUTO 1 % (0-1); LYMPHOCYTES ABSOLUTE AUTO 0.72 K/mm3 (0.84-5.20); LYMPHOCYTES PERCENT AUTO 9 % (21-46); MONOCYTES ABSOLUTE AUTO 1.61 K/mm3 (0.16-1.47); MONOCYTES PERCENT AUTO 19 % (4-13); Mean Corpuscular HGB Conc 32.9 g/dL (31.5-36.5); Mean Corpuscular Volume 100 fL (80-100); Mean Platelet Volume 9.9 fL (9.1-12.4); NEUTROPHILS ABSOLUTE AUTO 5.99 K/mm3 (1.96-9.15); NEUTROPHILS PERCENT AUTO 71 % (41-73); NRBC ABSOLUTE 0.02 K/mm3 (0.00-0.02); NRBC Auto 0.2 /100 WBC (0.0-0.2); Platelet Count 101 K/mm3 (150-400); RDW Coefficient Variation 15.1 % (11.7-14.2); Red Blood Cell Count 3.09 M/mm3 (4.30-5.90); White Blood Cell Count 8.45 K/mm3 (4.00-11.30)
[2023-01-31 04:45] LABS: Albumin, Blood 1.8 g/dL (3.4-5.0); Albumin/Globulin Ratio 0.4 (0.8-1.8); Bilirubin, Total 2.1 mg/dL (0.1-1.0); Bun/Creatinine Ratio 13.2 (12.0-20.0); Calcium, Blood 7.2 mg/dL (8.5-10.1); Creatinine, Blood 2.42 mg/dL (0.60-1.20); Globulin, Blood 4.4 g/dL (2.2-4.0); Potassium, Blood 4.4 mmol/L (3.5-5.5); Total Protein, Blood 6.2 g/dL (6.4-8.2)
--- NOTE | 2023-01-31 06:11 | NUR ---
SHIFT SUMMARY: NO ACUTE CHANGES OVERNIGHT. PT REMAINS LETHARGIC, WAKES UP TO VERBAL STIMULI AND OPENS EYES BUT IS NOT FOLLOWING COMMANDS OR ANSWERING QUESTIONS. PT ASLEEP IN BED FOR ENTIRE SHIFT. PT VERY PAINFUL WITH TURNS, ALL EXTREMITIES ELEVATED. PT EDEMATOUS, 2+, TO BUE AND BLE. PT URINE OUTPUT THIS SHIFT AT 375 MLS. TMAX AT 99.2; FAN AND COOL WASH CLOTH APPLIED. PT REMAINS SR ON MONITOR WITH HR 90'S, SBP 110-120. PT ON NC @ 2LPM WITH SPO2 97<, RR 12-14. WILL REPORT OFF TO ONCOMING RN.
[2023-01-31 06:56] LABS: Magnesium, Blood 1.9 mg/dL (1.6-2.4); Phosphorus, Blood 2.7 mg/dL (2.5-4.9)
--- NOTE | 2023-01-31 16:45 | NUR ---
SHIFT SUMMARY PT HAS BEEN VERY LETHARGIC AND DIFFICULT TO ROUSE MOST OF THIS SHIFT. PT IS EASIER TO WAKE AND IS ABLE TO ANSWER SIMPLE QUESTIONS THIS AFTERNOON. PT SPEECH REMAINS SLURRED AND MUMBLED. PT QUICKLY FALLS BACK TO SLEEP WHEN UNDISTURBED. PT WITH MINIMAL TREMORS WITH MOVEMENT. PT CONTINUES TO MOAN OUT WITH REPOSITIONING, BUT DOES NOT CONSISTENTLY COMPLAIN OF PAIN. PT WITH IMPROVED COUGH EFFORT THIS AFTERNOON. PT WITH LARGE AMOUNT OF THICK, STRINGY, LOZANO SPUTUM. SPO2 >92% ON 2L O2 NC. IVS REMAIN IN PLACE WITH LR INFUSING AT 100 ML/HR AND NS TKO. MARY REMAINS IN PLACE WITH DARK YELLOW URINE OUTPUT NOTED. VITAL SIGNS STABLE. MULTIPLE FAMILY MEMBERS IN THIS SHIFT. WILL CONTINUE TO MONITOR AND REPORT OFF TO ONCOMING RN.
--- NOTE | 2023-01-31 19:15 | NUR ---
ASSUMPTION OF CARE: RECEIVED REPORT FROM RICKIE YATES. PT APPEARS DROWSY. AWAKENS TO VERBAL STIMULI, ABLE TO ANSWER SOME SIMPLE QUESTIONS BUT MUMBLES AND IS DIFFICULT TO UNDERSTAND AT TIMES. FALLS BACK ASLEEP VERY QUICKLY. C/O PAIN IN HIS BACK, AND HOLLERS OUT WHEN REPOSITIONED. SEEMS TO BE ALLEVIATED WITH REST AND REPOSITIONING. PT HAS VERY THICK BROWN SECRETIONS, ABLE TO COUGH THEM UP. ON 2L NC WITH SATS >90%. DENIES SOB. CARDIAC MONITORING IN PLACE, SR WITH RATE 90'S. SBP 120'S. ABDOMEN DISTENDED AND FIRM, TENDER UPON PALPATION. BS HEARD IN ALL [address] MARY IN [address] FOR I&O, PATENT AND DRAINING TO GRAVITY. THREE PIV, INTACT AND PATENT. UNABLE TO ASSESS CIWA AT THIS TIME DUE TO PT MENTATION. NO TREMOR NOTED, TEMP NORMOTHERMIC. SIGNIFICANT OTHER AT BEDSIDE, UPDATED TO PLAN OF CARE. LR AT 50 ML/HR. PT PO MEDS HELD D/T MENTATION AND ASPIRATION RISK.
[2023-02-01] VITALS (47 sets, daily range): BP systolic 79–137; BP diastolic 56–94
--- NOTE | 2023-02-01 00:28 | NUR ---
UPDATE: CALL PLACED TO DR. SHOOK REGARDING PT PAIN. NEW ORDER GIVEN FOR IV DILAUDID INSTEAD OF PO RELATED TO PT ASPIRATION RISK.
[2023-02-01 03:37] LABS: BASOPHILS ABSOLUTE AUTO 0.03 K/mm3 (0.00-0.23); BASOPHILS PERCENT AUTO 0 % (0-2); EOSINOPHILS PERCENT AUTO 0 % (0-6); Hematocrit 31.7 % (37.0-53.0); Hemoglobin 10.4 g/dL (13.5-17.5); IMMATURE GRAN ABSOLUTE AUTO 0.37 K/mm3 (0.00-0.10); IMMATURE GRAN PERCENT AUTO 5 % (0-1); LYMPHOCYTES ABSOLUTE AUTO 0.29 K/mm3 (0.84-5.20); LYMPHOCYTES PERCENT AUTO 4 % (21-46); MONOCYTES ABSOLUTE AUTO 0.36 K/mm3 (0.16-1.47); MONOCYTES PERCENT AUTO 5 % (4-13); Mean Corpuscular HGB Conc 32.8 g/dL (31.5-36.5); Mean Corpuscular Volume 101 fL (80-100); Mean Platelet Volume 9.9 fL (9.1-12.4); NEUTROPHILS ABSOLUTE AUTO 6.92 K/mm3 (1.96-9.15); NEUTROPHILS PERCENT AUTO 87 % (41-73); Platelet Count 109 K/mm3 (150-400); RDW Coefficient Variation 15.4 % (11.7-14.2); RDW Standard Deviation 57.4 fL (35.1-46.3); Red Blood Cell Count 3.15 M/mm3 (4.30-5.90); White Blood Cell Count 7.97 K/mm3 (4.00-11.30)
[2023-02-01 04:07] LABS: Albumin, Blood 1.7 g/dL (3.4-5.0); Albumin/Globulin Ratio 0.4 (0.8-1.8); Bilirubin, Total 1.6 mg/dL (0.1-1.0); Bun/Creatinine Ratio 18.5 (12.0-20.0); Calcium, Blood 7.5 mg/dL (8.5-10.1); Creatinine, Blood 1.62 mg/dL (0.60-1.20); Globulin, Blood 4.7 g/dL (2.2-4.0); Potassium, Blood 4.9 mmol/L (3.5-5.5); Total Protein, Blood 6.4 g/dL (6.4-8.2)
--- NOTE | 2023-02-01 05:50 | NUR ---
SHIFT SUMMARY: PT AWAKENS BRIEFLY TO VERBAL STIMULI BUT REMAINS DROWSY AND QUICKLY FALLS BACK ASLEEP WHEN NOT STIMULATED. PT ABLE TO REST AFTER THE DOSE OF DILAUDID WITHOUT YELLING OUT IN PAIN. UNABLE TO OBTAIN ACCURATE CIWA SCORE T/O THE SHIFT RELATED TO PT MENTATION. PT ALERT AND ORIENTED TO PERSON AND SELF. NO VISIBLE SIGNS OF TREMOR OR SWEAT. REMAINS ON NURSING SECRETARY, SR RATE 80'S-90'S. 2L NC IN PLACE, SPO2 >90 WITH PERIODS OF DESATTING WHILE SLEEPING INTO THE HIGH 80'S. SMALL BROWN BM. MARY REMAINS, PATENT AND DRAINING YELLOW URINE TO GRAVITY. THREE PIV, INTACT AND PATENT. LR AT 50 ML/HR. PT KEPT NPO T/O THE NIGHT R/T ASPIRATION RISK. SIGNIFICANT OTHER AT BEDSIDE T/O THE SHIFT, UPDATED TO PLAN OF CARE.
--- NOTE | 2023-02-01 07:00 | NUR ---
ASSUMPTION OF CARE: ASSUMED CARE OF PATIENT WITH ELIDA FARNSWORTH. PATIENT RESTING QUIETLY IN BED. PATIENT'S SO SLEEPING AT BEDSIDE. LR IN FUSING AT 50 ML/MIN. PATIENT ON 2L VIA NC. SPO2 IN THE MID TO HIGH 90S. MAPS >65. NO SIGNS OR SYMPTOMS OF PAIN OR DISCOMFORT AT THIS TIME.
--- NOTE | 2023-02-01 11:35 | NUR ---
MRI PRE MEDICATION: RN NOTIFIED THAT THE PATIENT WAS BARELY ABLE TO TOLERATE THE PRIOR MRI. RECOMMENDED THAT PATIENT BE PRE-MEDICATED. THROUGHOUT THE MORNING, PATIENT SLEEPING SOUNDLY WITH MINIMAL COMMUNICATION OR DIRECTION FOLLOWING. PATIENT HAD RECEIVED AND RESPONDED WELL TO DILAUDID DURING THE NIGHT. (PAIN/DISCOMFORT HAD NOT DECREASED WITH ATIVAN PER REPORT). DISCUSSED WITH DR. NINA. NEW ORDERS TO LOWER DOSING OF DILAUDID AND KEEP THIS MEDICATION ON PRN WELL USE TO ASSIST WITH MRI NEEDED.
--- NOTE | 2023-02-01 17:00 | NUR ---
LOW RR: POST MRI ATTEMPT AND ADMINISTRATION OF DILAUDID, PATIENT HAD A LOW RR (6-8 BPM). PATIENT ON 3L VIA NC WITH SPO2 >92%. PATIENT AWAKENING TO VERBAL STIMULI, BUT FALLING BACK ASLEEP BEFORE ABLE TO FOLLOW DIRECTIONS OR RESPOND. DISCUSSED MULTIPLE TIMES WITH PRECEPTOR, PHUONG HERNANDEZ AND DR. LOREDO. PATIENT CONTINUED TO RESPOND TO VERBAL STIMULI AND MAPS >65 (SPB IN THE HIGH 80S TO HIGH 90S). CONTINUED TO MONITOR UNTIL PATIENT EXPERIENCED A SLOW DECLINE IN BLOOD PRESSURE. DISCUSSED WITH PROGRAM FACILITATOR. DR. NINA NOTIFIED AND PATIENT STARTED ON BIPAP WITH PRESSURES 14/7 WITH 16 BREATHS BACK-UP. SPO2 INCREASED, RR INCREASED AND BLOOD PRESSURES STABILIZED.
[2023-02-01 17:49] LABS: Base Excess Venous -6.4 mmol/L; Bicarbonate Venous 19.6 mmol/L (24.0-30.0); pH Blood Venous 7.31 (7.34-7.37)
--- NOTE | 2023-02-01 19:15 | NUR ---
ASSUMPTION OF CARE: RECEIVED REPORT FROM FIDENCIO RN AND ELIDA RN. PT ALERT AND ORIENTED TO PERSON AND SELF. ABLE TO ANSWER SOME QUESTIONS BUT STILL HAS PERIODS OF CONFUSION AND MUMBLING. UNABLE TO ASSESS CIWA D/T MENTATION. PT ON CPAP WITH SPO2 MAINTAINING >94%. ABLE TO TAKE BREAKS FROM CPAP AND USE NC AT 2L. CPAP BACK ON WHILE SLEEPING. CARDIAC MONITORING IN PLACE, SR WITH HR 80'S. SBP 90'S-100'S. DOBHOFF PLACED, VERIFIED WITH CHEST X-RAY AND CLEARED TO USE BY HOSPITALIST, TUBE FEED STARTED AT 25 ML/HR, WITH 30ML Q4 FLUSHES. PT TOLERATED WELL. NO BM YET. PT C/O BACK PAIN AND HOLLERS OUT WITH REPOSITIONING, MEDICATED PER MAR WITH RELIEF. MARY IN PLACE, PATENT AND DRAINING TO GRAVITY. SIGNIFICANT OTHER AT BEDSIDE DURING SHIFT CHANGE AND WENT HOME, UPDATED TO PLAN OF CARE. THREE PIV IN PLACE, PATENT AND INFUSING. LR AT 100 ML/HR.
--- NOTE | 2023-02-01 20:20 | NUR ---
SHIFT SUMMARY: NEURO: PATIENT DROWSY IN THE AM. PATIENT WOULD WAKEN TO VERBAL STIMULI AND ATTEMPT TO ANSWER. RESPONSES WERE MINIMAL AND GARBLED. PATIENT COUGHED WITH DIRECTION AND SUCTION. UNABLE TO GET PATIENT TO FOLLOW OTHER DIRECTIONS. SEE NURSE'S NOTE RE: LOW RR. DURING THE AFTERNOON, PATIENT INCREASINGLY DROWSY. CONTINUED TO RESPOND TO VERBAL STIMULI, BUT FELL BACK ASLEEP BEFORE ANSWERING OR ATTEMPTING TO FOLLOW COMMANDS. RESPIRATORY: SEE NURSES NOTE RE: LOW RR. PATIENT STARTED THE SHIFT WITH 2L VIA NC. POST MRI, PATIENT REQUIRED 3L VIA NC. LATER IN THE AFTERNOON, PATIENT PLACED ON BIPAP TO ASSIST WITH VENTILATION AND RR. PRESSURES 14/7 WITH BACKUP RATE OF 16 PATIENT TOLERATED WELL. CARDIAC: PATIENTS HEART RATE STABLE IN THE 70S-80S. THROUGHOUT THE DAY MAPS>65. SBP IN THE 100S-110S IN THE MORNING AND HIGH 80S TO HIGH 90S. BY THE END OF SHIFT, SBP IN THE LOW 100S. PATIENT CONTINUES TO HAVE EDEMA IN BLE. GI/: ABDOMEN CONTINUES TO BE DISTENDED AND TENDER. HYPOACTIVE BOWEL SOUNDS. SOCIAL RESEARCH ASSISTANT CONSULTATION WITH PLANS FOR ENTERAL TUBE FEEDING. FAMILY AWARE AND AGREEABLE. MARY CATHETER IN PLACE AND DRAINING DARK YELLOW/SILVESTRE URINE. PSYCHSOCIAL: PATIENT VISITED BY HIS SO AND SISTER DURING THE DAY. THEY ARE SUPPORTIVE OF THE PATIENT AND INVESTED IN HIS CARE.
[2023-02-02] VITALS (60 sets, daily range): BP systolic 94–135; BP diastolic 60–101
[2023-02-02 02:51] LABS: BASOPHILS ABSOLUTE AUTO 0.02 K/mm3 (0.00-0.23); BASOPHILS PERCENT AUTO 0 % (0-2); EOSINOPHILS PERCENT AUTO 0 % (0-6); Hematocrit 29.9 % (37.0-53.0); Hemoglobin 9.7 g/dL (13.5-17.5); IMMATURE GRAN ABSOLUTE AUTO 0.22 K/mm3 (0.00-0.10); IMMATURE GRAN PERCENT AUTO 3 % (0-1); LYMPHOCYTES ABSOLUTE AUTO 0.39 K/mm3 (0.84-5.20); LYMPHOCYTES PERCENT AUTO 6 % (21-46); MONOCYTES PERCENT AUTO 7 % (4-13); Mean Corpuscular HGB 32.8 pg (26.0-34.0); Mean Corpuscular HGB Conc 32.4 g/dL (31.5-36.5); Mean Corpuscular Volume 101 fL (80-100); Mean Platelet Volume 9.9 fL (9.1-12.4); NEUTROPHILS ABSOLUTE AUTO 5.78 K/mm3 (1.96-9.15); NEUTROPHILS PERCENT AUTO 84 % (41-73); NRBC ABSOLUTE 0.02 K/mm3 (0.00-0.02); NRBC Auto 0.3 /100 WBC (0.0-0.2); Platelet Count 151 K/mm3 (150-400); RDW Coefficient Variation 15.5 % (11.7-14.2); RDW Standard Deviation 57.5 fL (35.1-46.3); Red Blood Cell Count 2.96 M/mm3 (4.30-5.90); White Blood Cell Count 6.91 K/mm3 (4.00-11.30)
[2023-02-02 03:13] LABS: Albumin/Globulin Ratio 0.5 (0.8-1.8); Bun/Creatinine Ratio 27.9 (12.0-20.0); Calcium, Blood 7.4 mg/dL (8.5-10.1); Creatinine, Blood 1.36 mg/dL (0.60-1.20); Magnesium, Blood 2.2 mg/dL (1.6-2.4); Prealbumin, Blood 3.9 mg/dL (20.0-40.0)
--- NOTE | 2023-02-02 03:36 | NUR ---
UPDATE AROUND 0050 PT WAS BECOMING MORE AGITATED. HE WAS RESTLESS IN BED, PULLING AT HIS BIPAP AND DOBHOFF, AND CRYING OUT EITHER MOANS OR "MOM". PT REPOSITIONED WITHOUT RELIEF, HE WAS UNCONSOLABLE AND QUICKLY FORGOT REDIRECTIONS. 0.5MG DILAUDID GIVEN AT 0123 WITH NO RELIEF, 0200 1MG ATIVAN GIVEN WITHOUT RELIEF, 0230 0.5MG DILAUDID GIVAN. BY 0300 PT RR BETWEEN 6-8 ON V30 BIPAP, SPO2 92%. CALL MADE TO RT WHO SWICHED HIM OVER TO V60 BIPAP WITH THE SAME SETTINGS. PT Vt 800 WHEN HE INITIATES BREATH, WHEN HE DOES NOT, BIPAP IS ABLE TO PROVIDE Vt BETWEEN 300-500. DR SHOOK CALLED AND UPDATED ON THE SITUATION AND HE ARRIVED TO BEDSIDE TO EVALUATE. PLAN TO CONT WITH CURRENT BIPAP SETTINGS AND TO OBTAIN AN ABG NOW.
[2023-02-02 03:38] LABS: PCO2 Arterial 44.3 mmHg (35-45); PO2 Arterial 473 mmHg (80-100); pH Blood Arterial 7.28 (7.35-7.45)
[2023-02-02 05:03] LABS: PCO2 Arterial 47.8 mmHg (35-45); PO2 Arterial 110 mmHg (80-100); pH Blood Arterial 7.26 (7.35-7.45)
--- NOTE | 2023-02-02 06:06 | NUR ---
SHIFT SUMMARY: PT SOMNOLENT AFTER GIVEN DILAUDID, PLACED ON BIPAP WITH AVAP SETTINGS. FIO2 40%. SPO2 >95%. GIVEN NARCAN 0.[address] SHOOK. PT WAKING UP, HOLLERING OUT AND ATTEMPTING TO REMOVE BIPAP MASK. MULTIPLE ATTEMPTS TO REPOSITION PT FOR COMFORT AND RELIEF FROM BACK PAIN WITH NO RESULTS. PT RESTLESS. ORCHARD WORKER SHOWS SR, HR 80'S. SBP 120'S. TUBE FEED INFUSING AT GOAL. NO BM THIS SHIFT. MARY PATENT AND DRAINING TO GRAVITY SILVESTRE COLORED URINE. LR AT 100 ML/HR. 3 PIV, INTACT AND INFUSING. PT ABDOMEN VERY FIRM AND DISTENDED. LARGE BRUISE ON LEFT FLANK. SCROTAL EDEMA NOTED, BLE EDEMA NOTED. CALL PLACED TO FAMILY FOR UPDATE ON PT CONDITION.
--- NOTE | 2023-02-02 07:00 | NUR ---
ASSUMPTION OF CARE: ASSUMED CARE OF PATIENT AT 0700 WITH ELIDA FARNSWORTH. PATIENT ALTERNATING BETWEEN DROWSINESS AND AGITATION WITH THE BIPAP. AVAP R16/450/40%. SPO2S >92%. MAPS >65. SBPS IN THE 110S. PATIENT ATTEMPTING TO RESPOND TO QUESTIONS. RESPONSES ARE MUMBLED. MARY CATHETER IN PLACE AND DRAINING FREELY. URINE IS A DARK YELLOW.
--- NOTE | 2023-02-02 15:27 | NUR ---
Pt on break from BiPAP since 1400. Currently on 2 LPM NC with ETCO2 in place. Pt A&O x 1. Pleasant and cooperative with care. Provides factual answers to simple questions, however speech is garbled and intermittently comprehensible. Pt able to communicate simple needs "My feet are cold" and "my back hurts". Ceiling lift used to mobilize patient to recliner. Currently sitting up. Follows commands well. L pupil remains larger in size than R pupil with slower response to light. R pupil 3 mm and brisk response to light. Able to move all extremities with equal strength and range of motion. Active range of motion exercises performed with patient. Plan of care discussed with Dr Skelton, no changes to plan at this time.
--- NOTE | 2023-02-02 18:45 | NUR ---
SHIFT SUMMARY: NEURO: DURING THE AM, PATIENT INITIALLY ALTERNATED BETWEEN DROWSY AND AGITATED, ESPECIALLY WITH THE BIPAP MASK. AGITATION DECREASED WITH PLACEMENT OF FULL FACIALY BIPAP MASK. PATIENT RECEIVED SEDATION FOR HEAD CT. PATIENT TOELRATED WELL, BUT REQUIRED EXTENDED TIME FOR THE SEDATION TO WEAR OFF. MENTATION IMPROVED WITH TRANSFER OF PATIENT TO THE CHAIR, ENGAGING INTERACTIONS WITH ELIDA, AND DISCUSSIONS/ENCOURAGEMENT FROM FAMILY. PATIENT REPORTING SOME GENERALIZED AND BACK PAIN DURING THE SHIFT. ABLE TO ASSIST WITH REPOSITIONING. SEEMED TO BE IMPROVED WHEN IN THE CHAIR. RESPIRATORY: PATIENT STARTED THE SHIFT REQUIRING VPAP. PATIENT TOLERATED A BREAK FROM THIS TO A NC WITH SPO2 >92%. END TIDAL CO2 IN PLACE WITH NC. PATIENT PLACED ON VPAP FOR THE CT SCAN AND DURING RECOVERY FROM THE CT SCAN. PATIENT ABLE TO TRANSITION BACK TO THE NC WITH IMPROVEMENTS IN MENTATION. CARDIAC: PATIENT BLOOD PRESSURES STABLE THROUGHOUT THE SHIFT. SBPS 100S-120S. MAPS >65. PATIENT CONTINUES TO HAVE DEPENDENT EDEMA ON HIS FLANKS, SCROTAL EDEMA, AND MILD EDEMA OF THE HANDS AND FEET. GI/: MARY IN PLACE AND DRAINING FREELY. TUBE FEED INFUSING AT 40 ML/HR. PATIENT TOLERATING WITHOUT NAUSEA. ABDOMEN CONTINUES TO BE SEVERELY DISTENDED. PATIENT REPORTED THAT "IT DIDN'T FEEL GOOD" WITH PALPATION, BUT DID NOT COMPLAIN OF PAIN. PATIENT HAD A SOFT, LIGHT BROWN BOWEL MOVEMENT THIS AFTERNOON. INTEGUMENTARY/MUSCULOSKELETAL: PATIENT CONTINUES TO HAVE ABDOMINAL AND FLANK BRUISES. BRUISES MARKED WITH SKIN MARKER. PATIENT MOVING LIMBS FREELY. BY THE END OF THE SHIFT, PATIENT ABLE TO ASSIST WITH REPOSITIONING. PATIENT ABLE TO STAND WHEN HEAVILY SUPPORTED BY [facility] AND TWO STAFF MEMBERS. PSYCHSOCIAL: PATIENT'S FAMILY AT BEDSIDE. THEY ARE SUPPORTIVE AND DIRECT WITH THE PATIENT. INTERACTIONS WERE POSITIVE AND HELPFUL TO IMPROVING THE PATIENT'S MENTATION.
--- NOTE | 2023-02-02 19:15 | NUR ---
ASSUMPTION OF CARE: RECEIVED REPORT FROM ELIDA AND FIDENCIO YATES. PT ALERT AND ORIENTED TO PERSON, PLACE AND SELF. ABLE TO ANSWER SOME QUESTIONS BUT STILL HAS PERIODS OF CONFUSION AND IS FORGETFUL. NC IN PLACE UPON SHIFT CHANGE AT 2L. PT TRANSITIONED TO BIPAP FOR SLEEP, AVAP WITH FIO2 40%. SPO2 >90%. PT FREQUENTLY PULLING AT BIPAP MASK. PT C/O SEVERE BACK PAIN, MEDICATED PER MAR WITH NO RELIEF. FREQUENT ATTEMPTS TO REPOSITION THE PT, WITH UNINTERRUPTED REST HAS ALSO PROVIDED NO RELIEF. PT PULLED OUT HIS OWN DOBHOFF, PER DR. LAMA NOT TO REPLACE. PT NPO, NOT GIVEN PO MEDS. MARY, DRAINING TO GRAVITY. THREE PIV, PATENT AND SALINE LOCKED. S/O AT THE BEDSIDE, UPDATED TO PLAN OF CARE. ABDOMEN STILL DISTENDED AND FIRM, MORE PROMINENT ON LEFT SIDE. SCROTAL EDEMA NOTED. SEE SHIFT ASSESSMENT FOR FULL ASSESSMENT.
[2023-02-03] VITALS (20 sets, daily range): BP systolic 103–147; BP diastolic 62–100
[2023-02-03 03:20] LABS: Base Excess Venous -3.4 mmol/L; Bicarbonate Venous 22.2 mmol/L (24.0-30.0); PCO2 Venous 31.1 mmHg (38-42); pH Blood Venous 7.43 (7.34-7.37)
[2023-02-03 03:44] LABS: BASOPHILS ABSOLUTE AUTO 0.03 K/mm3 (0.00-0.23); BASOPHILS PERCENT AUTO 0 % (0-2); EOSINOPHILS PERCENT AUTO 0 % (0-6); Hematocrit 31.1 % (37.0-53.0); Hemoglobin 10.1 g/dL (13.5-17.5); IMMATURE GRAN ABSOLUTE AUTO 0.42 K/mm3 (0.00-0.10); IMMATURE GRAN PERCENT AUTO 5 % (0-1); LYMPHOCYTES ABSOLUTE AUTO 0.66 K/mm3 (0.84-5.20); LYMPHOCYTES PERCENT AUTO 8 % (21-46); MONOCYTES ABSOLUTE AUTO 0.69 K/mm3 (0.16-1.47); MONOCYTES PERCENT AUTO 8 % (4-13); Mean Corpuscular HGB 32.6 pg (26.0-34.0); Mean Corpuscular HGB Conc 32.5 g/dL (31.5-36.5); Mean Corpuscular Volume 100 fL (80-100); Mean Platelet Volume 9.5 fL (9.1-12.4); NEUTROPHILS ABSOLUTE AUTO 6.49 K/mm3 (1.96-9.15); NEUTROPHILS PERCENT AUTO 78 % (41-73); Platelet Count 209 K/mm3 (150-400); RDW Coefficient Variation 15.8 % (11.7-14.2); RDW Standard Deviation 58.9 fL (35.1-46.3); White Blood Cell Count 8.29 K/mm3 (4.00-11.30)
[2023-02-03 04:24] LABS: Albumin/Globulin Ratio 0.5 (0.8-1.8); Bilirubin, Total 0.9 mg/dL (0.1-1.0); Bun/Creatinine Ratio 34.6 (12.0-20.0); Calcium, Blood 7.8 mg/dL (8.5-10.1); Creatinine, Blood 1.27 mg/dL (0.60-1.20); Globulin, Blood 4.1 g/dL (2.2-4.0); Phosphorus, Blood 0.9 mg/dL (2.5-4.9); Potassium, Blood 3.6 mmol/L (3.5-5.5); Total Protein, Blood 6.1 g/dL (6.4-8.2)
--- NOTE | 2023-02-03 06:18 | NUR ---
SHIFT SUMMARY: PT CONTINUES TO HOLLER OUT T/O THE SHIFT. REMAINS CONFUSED AND FORGETFUL. CONTINUAL ATTEMPTS AT REPOSITIONING AND REDIRECTION TO KEEP PT FROM PULLING OFF OXYGEN. PT PLACED IN MITTS BOTH HANDS TO KEEP FROM PULLING LINES. PRECEDEX AT 0.6 MCG/KG/HR D/T PT RESTLESSNESS AND AGITATION. ENDORSES PAIN IN BACK T/O THE SHIFT WITH MINIMAL RELIEF FROM REPOSITIONING AND MEDICATION. PT ABLE TO SLEEP OFF AND ON VERY SHORT AMOUNT OF TIME T/O THE SHIFT. A&O TO PERSON AND PLACE. PO MEDS HELD D/T ASPIRATION RISK AND NPO STATUS. PIVS INTACT AND PATENT. ABLE TO HAVE BM ON BEDPAN. MARY DRAINING TO GRAVITY, SILVESTRE URINE. UNABLE TO TOLERATE BIPAP T/O THE NIGHT. 4L NC IN PLACE WITH SATS >90%. SR, HR 70'S. THICK SECRETIONS SUCTIONED ORALLY.
--- NOTE | 2023-02-03 07:08 | NUR ---
ASSUME CARE: I have assumed care of this patient.
--- NOTE | 2023-02-03 17:44 | NUR ---
SHIFT SUMMARY: Precedex placed on standby. Pt up in chair for much of day; he stood and marched in place several times. Pt transferred to bedside commode for small BM. He was transitioned to a liquid diet after successful bedside swallow. PRN hycet and fentanyl given for pain. Pt reports neck and back pain.
--- NOTE | 2023-02-03 20:00 | NUR ---
ASSUMED CARE PT LAYING IN BED AT SHIFT CHANGE. HE IS RESTLESS BUT REDIRECTABLE; HE IS ORIENTED TO SELF ONLY; WILL ATTEMPT TO FOLLOW DIRECTIONS AFTER SEVERAL REMINDERS BUT CONT TO HAVE GENERALIZED WEAKNESS; WHEN NOT STIMULATED HE MOANS IN BED. SPO2 >90% ON 4L NC. AFEBRILE. HR 100-110; BP STABLE WITH SBP 120'S. ABD FIRM WITH BT HYPOACTIVE; GAVE PM MEDS IN APPLESAUCE WITH SUCCESS BUT DID NOT TOLERATE WATER, COUGHING AFTERWARDS. MARY IN PLACE AND DRAINING TO GRAVITY. SEE SHIFT ASSESSMENT FOR FULL ASSESSMENT.
[2023-02-04] VITALS (39 sets, daily range): BP systolic 123–166; BP diastolic 72–112
[2023-02-04 03:47] LABS: BASOPHILS ABSOLUTE AUTO 0.02 K/mm3 (0.00-0.23); BASOPHILS PERCENT AUTO 0 % (0-2); EOSINOPHILS PERCENT AUTO 0 % (0-6); Hematocrit 30.4 % (37.0-53.0); Hemoglobin 10.1 g/dL (13.5-17.5); IMMATURE GRAN PERCENT AUTO 4 % (0-1); LYMPHOCYTES ABSOLUTE AUTO 0.65 K/mm3 (0.84-5.20); LYMPHOCYTES PERCENT AUTO 8 % (21-46); MONOCYTES ABSOLUTE AUTO 0.54 K/mm3 (0.16-1.47); MONOCYTES PERCENT AUTO 7 % (4-13); Mean Corpuscular HGB 32.5 pg (26.0-34.0); Mean Corpuscular HGB Conc 33.2 g/dL (31.5-36.5); Mean Corpuscular Volume 98 fL (80-100); Mean Platelet Volume 8.9 fL (9.1-12.4); NEUTROPHILS ABSOLUTE AUTO 6.47 K/mm3 (1.96-9.15); NEUTROPHILS PERCENT AUTO 81 % (41-73); NRBC ABSOLUTE 0.02 K/mm3 (0.00-0.02); NRBC Auto 0.3 /100 WBC (0.0-0.2); Platelet Count 210 K/mm3 (150-400); RDW Coefficient Variation 16.4 % (11.7-14.2); RDW Standard Deviation 58.8 fL (35.1-46.3); Red Blood Cell Count 3.11 M/mm3 (4.30-5.90); White Blood Cell Count 7.98 K/mm3 (4.00-11.30)
[2023-02-04 04:03] LABS: Albumin, Blood 2.1 g/dL (3.4-5.0); Anion Gap 6 mmol/L (6-16); Blood Urea Nitrogen 43 mg/dL (8-24); Bun/Creatinine Ratio 37.7 (12.0-20.0); CO2, Blood 23 mmol/L (21-32); Calcium, Blood 7.6 mg/dL (8.5-10.1); Chloride, Blood 118 mmol/L (98-108); Creatinine, Blood 1.14 mg/dL (0.60-1.20); Glomerular Filtration Rate 73 (60-); Glucose, Blood 95 mg/dL (70-99); Phosphorus, Blood 2.3 mg/dL (2.5-4.9); Sodium, Blood 147 mmol/L (136-145)
--- NOTE | 2023-02-04 04:15 | NUR ---
UPDATE PT CONT TO BE RESTLESS BUT IT IS MORE INTENSE NOW, HE IS NOT CONSOLABLE, FENTANYL GIVAN EARLIER WITH NO RELIEF. HE NOT YELLS OUT "MOM" AND "DAD" AND "HELP ME". PRECEDEX STARTED AT 0.4MCG/KG/HR.
--- NOTE | 2023-02-04 06:49 | NUR ---
END OF SHIFT SUMMARY PT STRUGGLED WITH RESTING T/O THE SHIFT. HE WAS RESTLESS ALL NIGHT AND NEVER HAD A MOMENT OF BEING RELAXED. PRECEDEX STARTED AND TITRATED UP TO 0.6MCG/KG/HR; FENTANYL GIVEN TWICE WITH NO RELIEF. SPO2 >90% ON 4L NC; HE DESAT DOWN TO 82% WITHOUT NC. AFEBRILE. HR 100-120'S. SBP 120-140'S. ABD CONT TO BE FIRM, NO BM THIS SHIFT. MARY IN PLACE AND DRAINING TO GRAVITY. PT SISTER IN EARLY AND GIVEN AN UPDATE. WILL REPORT TO AM RN WHEN AVAILABLE.
--- NOTE | 2023-02-04 09:50 | NUR ---
SHIFT ASSESSMENT ASSUMED CARE OF PT @ 0700. PT INITIALLY ON PRECEDEX, TITRATED OFF AT START OF SHIFT. PT NOW FOLLOWING COMMANDS INTERMITTENTLY BUT REMAINS VERY CONFUSED. DOES NOT KNOW WHERE HE IS, CALLS THIS NURSE "DAD" AND CHARGE NURSE "MOM". CONTINUES TO YELL OUT "HELP ME" & PROFANITY, NOT AGGRESSIVELY. PT DID FOLLOW SIMPLE DIRECTIONS LONG ENOUGH TO MAKE IT TO BEDSIDE CHAIR WITH SIGNIFCANT ASSISTANCE. HAVE NOT GIVEN PO MEDS, AWAITING ST EVAL. MARY CATH DRAINING TO GRAVITY. MONITORING CLOSELY.
--- NOTE | 2023-02-04 18:25 | NUR ---
SHIFT SUMMARY PT MILDLY IMPROVED FROM THIS AFTERNOON. CONTINUES TO BE CONFUSED BUT DOES RECOGNIZE FAMILY AND REMEMBERS HIS SONS VISITED HIM. IN CHAIR T/O DAY. NOW BACK IN BED, OCCASIONALLY MOANS OUT "HELP ME" BUT CANNOT SPECIFY WHAT'S WRONG. WORKED WITH PT/OT. PASSED SWALLOW EVAL WITH ST, PUREE DIET. THIS NURSE FED PT DINNER, ATE APPROXIMATELY 25%, NO SIGNS OF ASPIRATION. REMAINS ON 4LPM O2 VIA NC c SATS >90%. NO OTHER ACUTE CHANGES.
[2023-02-05] VITALS (51 sets, daily range): BP systolic 121–166; BP diastolic 78–111
[2023-02-05 03:35] LABS: BASOPHILS ABSOLUTE AUTO 0.02 K/mm3 (0.00-0.23); BASOPHILS PERCENT AUTO 0 % (0-2); EOSINOPHILS ABSOLUTE AUTO 0.02 K/mm3 (0.00-0.68); EOSINOPHILS PERCENT AUTO 0 % (0-6); Hematocrit 28.9 % (37.0-53.0); Hemoglobin 9.6 g/dL (13.5-17.5); IMMATURE GRAN ABSOLUTE AUTO 0.27 K/mm3 (0.00-0.10); IMMATURE GRAN PERCENT AUTO 3 % (0-1); LYMPHOCYTES ABSOLUTE AUTO 0.55 K/mm3 (0.84-5.20); LYMPHOCYTES PERCENT AUTO 5 % (21-46); MONOCYTES ABSOLUTE AUTO 0.48 K/mm3 (0.16-1.47); MONOCYTES PERCENT AUTO 5 % (4-13); Mean Corpuscular HGB 32.7 pg (26.0-34.0); Mean Corpuscular HGB Conc 33.2 g/dL (31.5-36.5); Mean Corpuscular Volume 98 fL (80-100); Mean Platelet Volume 8.8 fL (9.1-12.4); NEUTROPHILS ABSOLUTE AUTO 9.27 K/mm3 (1.96-9.15); NEUTROPHILS PERCENT AUTO 87 % (41-73); Platelet Count 194 K/mm3 (150-400); RDW Coefficient Variation 16.6 % (11.7-14.2); RDW Standard Deviation 58.9 fL (35.1-46.3); Red Blood Cell Count 2.94 M/mm3 (4.30-5.90); White Blood Cell Count 10.61 K/mm3 (4.00-11.30)
[2023-02-05 03:56] LABS: Albumin, Blood 1.9 g/dL (3.4-5.0); Anion Gap 3 mmol/L (6-16); Blood Urea Nitrogen 25 mg/dL (8-24); Bun/Creatinine Ratio 25.4 (12.0-20.0); CO2, Blood 25 mmol/L (21-32); Calcium, Blood 7.6 mg/dL (8.5-10.1); Chloride, Blood 118 mmol/L (98-108); Creatinine, Blood 0.98 mg/dL (0.60-1.20); Glomerular Filtration Rate 88 (60-); Glucose, Blood 119 mg/dL (70-99); Lactate Dehydrogenase (Ld),Bld 228 U/L (100-240); Phosphorus, Blood 2.7 mg/dL (2.5-4.9); Potassium, Blood 3.9 mmol/L (3.5-5.5); Sodium, Blood 146 mmol/L (136-145)
--- NOTE | 2023-02-05 06:10 | NUR ---
SUMMARY PATIENT AWAKE AND RESTLESS UNTIL APROX 0200. DUE TO PATIENTS CONTINUED CONFUSION AND BEING VERY IMPULSIVE, AND CONTINUOUSLY REMOVING HIS OXYGEN AND HEART MONITOR AND PULLING OUT AN IV BILAT WRIST RESTRAINTS WERE PLACED TO PROTECT LINES AND CORDS. PATIENT INCONT OF LARGE SOFT BROWN STOOL ONCE DURING THE NIGHT. ATTENDS IN PLACE. PATIENT ABLE TO HERBER PO MEDS WITH ASSIST. PILLS IN APPLESAUCE, AND WATER WITHOUT STRAW. PATIENTS GIRLFRIEND SENG AND SISTER LINDSAY, BOTH GIVEN UPDATE
--- NOTE | 2023-02-05 17:53 | NUR ---
SHIFT SUMMARY PATIENT WAS UP TO CHAIR FOR MOST OF THE DAY. MEDICATED WITH HYDROCODONE TWICE FOR BACK PAIN PER EMAR. PATIENT BEGAN CLEARING MENTATION EARLY THIS AFTERNOON, MORE ALERT AND COOPERATIVE IN CARES. KNEW WHERE HE WAS AND WAS ABLE TO FOLLOW DIRECTIONS BETTER. PATIENT HAD ONE EPISODE OF ASPIRATION WITH BREAKFAST-SEE PREVIOUS NURSE NOTE. SPEECH THERAPY EVALUATED AND CHANGED LIQUIDS TO NECTAR THICK. PATIENT HAS BEEN TOLERATING PO MEDS CRUSHED IN APPLESAUCE. PATIENT HAD 2 BM THIS SHIFT AND MARY DRAINED 650ML URINE OUT. NO OTHER CHANGES THIS SHIFT.
--- NOTE | 2023-02-05 20:51 | NUR ---
PATIENT SLEEPING, AWAKENS TO SLIGHT STIMULI. SPEECH IS SOFT, BUT ORIENTATED TO PLACE UNSURE OF DATE. PATIENTS SON AT BEDSIDE. MADRIGAL BUT VERY WEAK. ABLE TO TAKE SIPS OF THICKENED WATER WITHOUT DIFFICULTY. 5L/NC IN PLACE TO KEEP BIOX > 90% MOIST COUGH WITH SMALL AMT THICK SPUTUM, PATIENT SWALLOWING SPUTUM BEFORE ABLE TO SEE COLOR.
[2023-02-06] VITALS (22 sets, daily range): BP systolic 104–156; BP diastolic 67–106
[2023-02-06 04:44] LABS: BASOPHILS ABSOLUTE AUTO 0.02 K/mm3 (0.00-0.23); BASOPHILS PERCENT AUTO 0 % (0-2); EOSINOPHILS ABSOLUTE AUTO 0.01 K/mm3 (0.00-0.68); EOSINOPHILS PERCENT AUTO 0 % (0-6); Hematocrit 29.8 % (37.0-53.0); Hemoglobin 9.9 g/dL (13.5-17.5); IMMATURE GRAN ABSOLUTE AUTO 0.26 K/mm3 (0.00-0.10); IMMATURE GRAN PERCENT AUTO 3 % (0-1); LYMPHOCYTES ABSOLUTE AUTO 0.48 K/mm3 (0.84-5.20); LYMPHOCYTES PERCENT AUTO 5 % (21-46); MONOCYTES ABSOLUTE AUTO 0.48 K/mm3 (0.16-1.47); MONOCYTES PERCENT AUTO 5 % (4-13); Mean Corpuscular HGB 32.7 pg (26.0-34.0); Mean Corpuscular HGB Conc 33.2 g/dL (31.5-36.5); Mean Corpuscular Volume 98 fL (80-100); Mean Platelet Volume 9.1 fL (9.1-12.4); NEUTROPHILS ABSOLUTE AUTO 9.25 K/mm3 (1.96-9.15); NEUTROPHILS PERCENT AUTO 88 % (41-73); Platelet Count 210 K/mm3 (150-400); RDW Coefficient Variation 16.6 % (11.7-14.2); Red Blood Cell Count 3.03 M/mm3 (4.30-5.90)
[2023-02-06 05:11] LABS: Albumin, Blood 1.8 g/dL (3.4-5.0); Anion Gap 3 mmol/L (6-16); Blood Urea Nitrogen 25 mg/dL (8-24); Bun/Creatinine Ratio 26.2 (12.0-20.0); CO2, Blood 27 mmol/L (21-32); Calcium, Blood 7.8 mg/dL (8.5-10.1); Chloride, Blood 118 mmol/L (98-108); Creatinine, Blood 0.95 mg/dL (0.60-1.20); Glomerular Filtration Rate 91 (60-); Glucose, Blood 137 mg/dL (70-99); Phosphorus, Blood 3.1 mg/dL (2.5-4.9); Potassium, Blood 4.3 mmol/L (3.5-5.5); Sodium, Blood 148 mmol/L (136-145)
--- NOTE | 2023-02-06 06:15 | NUR ---
SUMMARY PATIENT SLEEPING T/O NIGHT, AWAKING TO VERBAL STIMULI. PATIENT NOW AWAKE AND POSITIONING SELF IN BED. IS NOW A&O X3 AND VOICE EASIER TO UNDERSTAND. MOIST COUGH WITH MOD AMT OF THICK LOZANO SPUTUM. HERBER PO MEDS WITH APPLESAUCE AND THICKENED WATER. GENERALIZED WEAKNESS CONTINUES.
--- NOTE | 2023-02-06 07:18 | NUR ---
ASSUMPTION FO CARE: ASSUMED CARE OF PATIENT WITH LETICIA VILLA. PATIENT RESTING IN BED. PATIENT SLOW TO RESPOND, BUT ANSWERING QUESTIONS AND FOLLOWING SOCIAL CUES APPROPRIATELY. PATIENT ASKING FOR BREAKFAST. ALL LINES ARE SALINE LOCKED AT THIS TIME. NO AGITATION REPORTED OVERNIGHT. PATIENT CALM AND COOPERATIVE IN BED. SPO2 IS AT 97% ON 3L. HR IN THE 80S. MAPS >65. SBPS CURRENTLY IN THE 140S. PATIENT APPEARS COMFORTABLE WITHOUT SIGNS OF RESPIRATORY DISTRESS OR AGITATION.
--- NOTE | 2023-02-06 15:30 | NUR ---
TRANSFER TO PCU/AFTERNOON ACTIVITIES: REPORT CALLED TO RECEIVING RN TOLU DOS SANTOS. PATIENT TRANSFERRRED IN BED. PATIENT CONTINUED TO BE DROWSY, BUT FOLLOWING DIRECTIONS, RESPONDED APPROPRIATELY AND PARTICIPATING IN CARE. PATIENT STOOD AND TOOK SIDE STEPS WITH PT/OT. PATIENT TOLERATED WELL. PATIENT ATTEMPTED TO GIVE SELF SPOONFULS OF THICKENED LIQUID, BUT WAS UNABLE TO GET THE SPOON HIGH ENOUGH TO HIS MOUTH. PATIENT HAD SO AND SON AT BEDSIDE TODAY. PATIENT CONTINUED TO REQUIRE 6L VIA OXYMIZER DURING THE SHIFT. PATIENT MAINTAINED SP02 90-96%. PATIENT CONTINUED TO HAVE A PRODUCTIVE COUGH OF LOZANO COLORED MUCUS. MONITORED FOR ASPIRATION. COUGHING AND PO INTAKE DID NOT APPEAR TO BE CORRELATED. SPUTUM COLOR DID NOT CHANGE WITH CHANGE IN FOOD COLOR. NO BOWEL MOVEMENT DURING THE MORNING OR EARLY AFTERNOON. BOWEL TONES PRESENT. PATIENT DENIES ABDOMINAL PAIN OR DISCOMFORT. PATIENT DENIED PAIN THROUGHOUT THE SHIFT. NO HALLUCINATIONS NOTED.
--- NOTE | 2023-02-06 18:23 | NUR ---
mail order biller told me that the patient ate a lot of his dinner but then started coughing near the end of it. He appears to be tired, sitting up with his eyes closed. Instructed mail order biller to hold all p.o. intake if he is not fully alert. He is no longer coughing and in no distress. 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
[2023-02-07] VITALS: BP 147/94
[2023-02-07 04:40] LABS: BASOPHILS ABSOLUTE AUTO 0.01 K/mm3 (0.00-0.23); BASOPHILS PERCENT AUTO 0 % (0-2); EOSINOPHILS ABSOLUTE AUTO 0.05 K/mm3 (0.00-0.68); EOSINOPHILS PERCENT AUTO 1 % (0-6); Hematocrit 33.1 % (37.0-53.0); Hemoglobin 10.7 g/dL (13.5-17.5); IMMATURE GRAN ABSOLUTE AUTO 0.11 K/mm3 (0.00-0.10); IMMATURE GRAN PERCENT AUTO 1 % (0-1); LYMPHOCYTES ABSOLUTE AUTO 0.89 K/mm3 (0.84-5.20); LYMPHOCYTES PERCENT AUTO 10 % (21-46); MONOCYTES ABSOLUTE AUTO 0.76 K/mm3 (0.16-1.47); MONOCYTES PERCENT AUTO 8 % (4-13); Mean Corpuscular HGB 32.3 pg (26.0-34.0); Mean Corpuscular HGB Conc 32.3 g/dL (31.5-36.5); Mean Corpuscular Volume 100 fL (80-100); NEUTROPHILS ABSOLUTE AUTO 7.45 K/mm3 (1.96-9.15); NEUTROPHILS PERCENT AUTO 80 % (41-73); Platelet Count 235 K/mm3 (150-400); RDW Standard Deviation 62.4 fL (35.1-46.3); Red Blood Cell Count 3.31 M/mm3 (4.30-5.90); White Blood Cell Count 9.27 K/mm3 (4.00-11.30)
[2023-02-07 04:45] VITALS: BP 169/104
[2023-02-07 05:07] LABS: Anion Gap 4 mmol/L (6-16); Blood Urea Nitrogen 21 mg/dL (8-24); Bun/Creatinine Ratio 20.8 (12.0-20.0); CO2, Blood 29 mmol/L (21-32); Calcium, Blood 8.1 mg/dL (8.5-10.1); Chloride, Blood 114 mmol/L (98-108); Creatinine, Blood 1.01 mg/dL (0.60-1.20); Glomerular Filtration Rate 85 (60-); Glucose, Blood 116 mg/dL (70-99); Phosphorus, Blood 3.3 mg/dL (2.5-4.9); Potassium, Blood 3.7 mmol/L (3.5-5.5); Sodium, Blood 147 mmol/L (136-145)
--- NOTE | 2023-02-07 05:18 | NUR ---
ASSUMED CARE OF PT AT 1900 02/06/23. PT RESTING W EYES CLOSED, OPENS EYES TO VERBAL STIM. CONFUSED, ORIENTED TO SELF ONLY. MADRIGAL. PT ATTEMPTING TO GET OOB W/O ASSISTANCE AT THE START OF SHIFT. PT ABLE TO SIT UP AT SIDE OF BED WITH SUPPORT, ABLE TO STAND AND TAKE A FEW STEPS. PT BECOMES FATIGUED QUICKLY. PT DID NOT TOLERATE PO INTAKE WELL OVER THIS SHIFT. MEDICAATIONS GIVEN CRUSHED IN APPLE SAUCE, PT AWAKE AND ALERT, HOB 90 PER SPEECH THERAPY INSTRUCTIONS. PT NOTED TO COUGH FREQUENTLY WHEN TAKING ANYTHING PO AND CONTINUED TO COUGH INTERMITTENTLY T/O THE NIGHT. 02 DEMANDS REMAIN UNCHANGED. AM SYNTHROID GIVEN CRUSHED IN PUDDING, PT DID NOT APPEAR TO TOLERATE ANY BETTER. PT A&OX2 T/O THE NIGHT. PULLING AT LINES AND TUBES, ATTEMPTING TO GET OOB AND YELLING OUT FROM TIME TO TIME. PT IS NOT REORIENTABLE, ARGUES W/ STAFF AND STATES "I AM GOING TO WALK HOME." PT REPOSITIONED FREQUENTLY T/O THE NIGHT. PT IS UNABLE TO USE CALL LIGHT FOR NEEDS. BED ALARM ON FOR SAFETY. USMAN REMAINS IN PLACE, DAY TEAM TO ADDRESS. PT DID NOT APPEAR TO SLEEP ALL NIGHT. WILL CONTINUE TO MONITOR AND GIVE REPORT TO ONCOMING SHIFT RN.
[2023-02-07 09:25] VITALS: BP 125/93
--- NOTE | 2023-02-07 11:08 | NUR ---
Pt to imaging for modified barium swallow. He is alert, cooperative, but still very weak. Required maximum assistance with gait belt and walker, and ongoing verbal directions and cues to stand and transfer from the recliner chair to adjacent wheelchair.
[2023-02-07 12:06] VITALS: BP 126/86
--- NOTE | 2023-02-07 12:09 | NUR ---
Pt back in bed, HOB elevated and legs elevated on pillows. Oral care given. RT here; pt declined respiratory treatment at this time. He is occasionally saying that he wants to go home. Also attmepts to move his legs out of bed for exiting; bed alarm on for safety. Reminders to pt that he has no ability to leave on his own, nor are there family/friends who are willing to assist him to leave AMA. He is not agitated, but he is cooperative and calm right now. Awaiting results on modified barium swallow.
--- NOTE | 2023-02-07 12:24 | NUR ---
Spoke with patient regarding NPO status and need for dobhoff tube for enteral feedings today. He said that he was agreeable to go ahead with this. Dr. Mejias's orders noted for placement of dobhoff and dietary consultaion for enteral feedings.
[2023-02-07 15:45] VITALS: BP 121/91
--- NOTE | 2023-02-07 16:02 | NUR ---
Sister Nata at the bedside. Clinical sitter also with the patient. He is having hallucinations and is confused, although able to make coherent clear speech and to stay awake without difficulty. He is sitting up in a recliner. Ice packs to his mid back for c/o pain at this time. Dobhoff was placed but twice the patient managed to inadvertently dislodge it; awaiting chest xray results confirming placement. Taped to his nose and tegederm to his cheek to prevent dislodgement.
--- NOTE | 2023-02-07 17:10 | NUR ---
Pt was exhausted. He has been awake all day. C/O back pain and wanted to get into bed from the recliner. Assisted, max required, with gait belt and walker from recliner to bed. Repositioned to left side lying per his preference, with ice packs to his back. Required 6 l/min of oxygen delivery for recovery after the activity. Still on 6 l/min and spo2 92%. He is recovering from dyspnea. Frequent productive cough, yellowish clear sputum, large amount once.
--- NOTE | 2023-02-07 18:09 | NUR ---
Pt is sleeping.
[2023-02-07 19:39] VITALS: BP 136/115
[2023-02-08 00:25] VITALS: BP 125/85
[2023-02-08 03:11] VITALS: BP 136/93
--- NOTE | 2023-02-08 04:51 | NUR ---
END OF SHIFT NOTE NO ACUTE EVENTS THIS SHIFT. PT WAS LETHARGIC AT START OF SHIFT, HAS BEEN ALERT THIS AM. ORIENTED TO HIMSELF AND ABLE TO STATE THAT HE IS IN [place] AT THE HOSPITAL, THE YEAR IS 2022, AND THE PRESIDENT IS AWA LOUIEFRANCY. PT IS CONFUSED AT TIMES REGARDING DETAILS OF HIS CARE PLAN BUT HAS BEEN ABLE TO BE REORIENTED. COOPERATIVE W/ ALL CARE OVERNIGHT. AVASURE CAMERA IN PLACE FOR PT'S SAFETY DUE TO FALL RISK AND HX OF REMOVING MEDICAL DEVICES. HR 90-100'S, SR/ST ON TELE. SBP 120-130'S, DENIES CHEST PAIN/PRESSURE. SPO2 >92% ON 4-7L O2 VIA NC. PT REPORTS SIGNIFICANT DRY MOUTH DUE TO STRICT NPO ORDERS, ORAL CARE COMPLETED & MOUTH MOISTURIZER APPLIED. DOBHOFF INFUSING TF AT GOAL RATE PER ORDERS. PT ENDORSES BACK PAIN, RELIEVED W/ REPOSITIONING T/O SHIFT. ABLE TO STAND AND TAKE SMALL STEPS TO BSC W/ MAX STAFF ASSIST; NO BM THIS SHIFT. MARY CATH IN PLACE W/ SIGNIFICANT OUTPUT, PATENT AND DRAINING TO GRAVITY. NO OTHER NEEDS AT THIS TIME. CALL LIGHT WITHIN REACH, BED IN LOWEST POSITION. BED ALARM ON. WILL REPORT TO ONCOMING DAY SHIFT RN.
[2023-02-08 07:52] VITALS: BP 132/89
[2023-02-08 11:51] VITALS: BP 124/86
--- NOTE | 2023-02-08 15:59 | NUR ---
Pt. is awake and sitting in a chair. Pt. is unsettled about why he is in the hospital. This clinical psychologist private practice's objective is to build a relationship of care and support by demonstrating care and concern. Asked guided questions to facilitate a life review. Listened with interest and empathy. Pt. displayed evidence of being heard and respected. Pt. vebrlaized gratitude for the spiritual care visit.
[2023-02-08 16:32] VITALS: BP 133/84
--- NOTE | 2023-02-08 18:30 | NUR ---
shift summary patient is alert and oriented x3-4. patient saw speech today and failed. see speech note. patient worked with physical therapy and occupational therapy. see shift assessment for further detials. cather in place and draining with gravity. plan of care is up to date.
[2023-02-08 19:31] VITALS: BP 155/93
[2023-02-09 00:03] VITALS: BP 122/83
[2023-02-09 05:01] VITALS: BP 150/97
--- NOTE | 2023-02-09 06:14 | NUR ---
SHIFT SUMMARY PATIENT DROWSY FOR MOST OF SHIFT, WILL WAKE TO VERBAL STIMULI BUT DOES NOT STAY AWAKE FOR EXTENDED PERIODS OF TIME. WHEN PATIENT IS AWAKE, AGITATES EASILY. ORIENTED x3-4. BP STABLE, TELE READING SR-ST, DENIED CHEST PAIN. ON 4L NC WITH SPO2 LOW TO MID 90s. DOBHOFF IN PLACE, TF PER ORDER. MARY IN PLACE DRAINING DARK YELLOW URINE TO GRAVITY. PATIENT TURNING SELF IN BED. NO OTHER CHANGES, WILL REPORT TO DAY SHIFT RN.
[2023-02-09 08:38] LABS: Hematocrit 29.9 % (37.0-53.0); Hemoglobin 9.6 g/dL (13.5-17.5)
[2023-02-09 08:53] LABS: Bun/Creatinine Ratio 26.5 (12.0-20.0); Calcium, Blood 7.9 mg/dL (8.5-10.1); Creatinine, Blood 0.91 mg/dL (0.60-1.20); Potassium, Blood 3.9 mmol/L (3.5-5.5)
[2023-02-09 08:57] VITALS: BP 116/75
--- NOTE | 2023-02-09 17:48 | NUR ---
shift summary this rn assumed care at 0700. vital signs stable and have remained stable. patient is alert and oriented x4. perrla. patient has been using call light to make needs knonw. camera is in room, but alarm has not gone off and has not set bed alarm off. patient in room this evening telling stories and joking with staff. patient medical status with tele. patient has dobhoff in place and secured. infusing at goal rate 65ml/hr and flush 120ml q4hr. smith in place draining with gravity, yellow coloration. see shift assessment for further detials. patient has reported of no pain, chest pain/pressure, or shortness of breath. plan of care is up to date.
[2023-02-09 20:21] VITALS: BP 109/75
[2023-02-10 03:38] VITALS: BP 118/89
[2023-02-10 03:51] LABS: Hematocrit 31.3 % (37.0-53.0); Hemoglobin 9.9 g/dL (13.5-17.5); Mean Corpuscular HGB Conc 31.6 g/dL (31.5-36.5); Mean Corpuscular Volume 101 fL (80-100); Mean Platelet Volume 10.1 fL (9.1-12.4); Platelet Count 148 K/mm3 (150-400); RDW Coefficient Variation 15.9 % (11.7-14.2); RDW Standard Deviation 58.8 fL (35.1-46.3); Red Blood Cell Count 3.09 M/mm3 (4.30-5.90); White Blood Cell Count 7.29 K/mm3 (4.00-11.30)
[2023-02-10 04:13] LABS: Bun/Creatinine Ratio 30.5 (12.0-20.0); Calcium, Blood 7.7 mg/dL (8.5-10.1); Creatinine, Blood 0.85 mg/dL (0.60-1.20); Potassium, Blood 4.2 mmol/L (3.5-5.5)
--- NOTE | 2023-02-10 06:09 | NUR ---
SHIFT SUMMARY PATIENT MORE ALERT THIS SHIFT, ORIENTED x4. ABLE TO MAKE NEEDS KNOWN TO STAFF, VERY TALKATIVE THIS SHIFT AND RECALLING EVENTS PRIOR TO ADMISSION TO HOSPITAL IN DETAIL. BP STABLE, TELE READING SR-ST DURING THE NIGHT. ON 3-4L NC WITH SPO2 >90%. PATIENT COUGHING UP THICK WHITE SPUTUM DURING THE NIGHT, USING SUCTION INDEPENDENTLY. DOBHOFF IN PLACE, TF INFUSING PER ORDER. MARY IN PLACE DRAINING DARK YELLOW URINE TO GRAVITY. TURNING SELF IN BED INDEPENDENTLY. AVASURE CAMERA IN ROOM. NO OTHER CHANGES DURING THE NIGHT. WILL REPORT TO DAY SHIFT RN.
[2023-02-10 07:29] VITALS: BP 105/74
--- NOTE | 2023-02-10 15:23 | NUR ---
CARE NOTE PT NOTED TO HAVE FEVER OF 101.7 AT APPROX. 1410, TYLENOL GIVEN AND TEMPERATURE REASSESSED AT APPROX. 1520. HR ALSO NOTED TO HAVE INCREASED IN TREND TO 110-120'S. DR. BOLANOS MADE AWARE BY THIS RN AT APPROX. 1525.
--- NOTE | 2023-02-10 16:53 | NUR ---
SHIFT SUMMARY PT IS ALERT AND ORIENTED X 4, HE IS ABLE TO MAKE HIS NEEDS KNOWN AND HAS AMBULATED A 1 ASSIST W/ FWW AND GAIT BELT TO CHAIR. HR NOTED TO INCREASE TO 110-S AT APPROX. 1100 PER TELE MONITORING, TEMPERATURE ALSO NOTED TO BE 101.7 AT APPROX. 1400 BUT IS NOW 98.7, PLEASE SEE EMAR FOR FEVER MANAGEMENT. BP STABLE, SPO2 MAINTAINED >95% VIA RA. PT REPORTED FEELING DYSPNEA W/ EXERTION. HE HAS DENIED FEELINGS OF CHEST PAIN/PRESSURE, NAUSEA/VOMITTING. HE REPORTED BACK PAIN, HEAT THERAPY AND REPOSITIONING PROVIDED. PARMJIT IS IN PLACE AND SECURE AT MARKER 56, TF IS INFUSING AT GOAL RATE OF 65ML/HR W/ 120ML FLUSHES Q4. IV'S ARE SALINE LOCKED. PT REPORTED PAIN AT CATHETER SITE THIS AFTERNOON. THIS RN ASSESSED ABILITY TO VOID AND CLAMPED MARY CATHETER AND PT WAS ABLE TO REPORT WHEN HE FELT THE URGE TO VOID THEREFORE CATHETER WAS REMOVED. HIS HAS BEEN AT BEDSIDE DURING SHIFT. EARLIER IN SHIFT THE PT STATED THAT HE WAS GOING TO LEAVE AMA, CAME TO BEDSIDE WITH INTENTIONS OF TAKING PT HOME BUT STAFF, INCLUDING JOB RECRUITER EDUARDO CADET EDUCATED PT ON NEED TO STAY IN HOSPITAL UNTIL SWALLOW REFLUX COULD BE RE-ASSESSED AND PT AGREED TO STAY. CALL LIGHT IS W/IN REACH, BED ALARM AND AVASURE RETAIL CASHIER ARE IN USE.
[2023-02-10 19:34] VITALS: BP 137/88
--- NOTE | 2023-02-10 22:35 | NUR ---
ASSUMPTION OF CARE THIS RN ASSUMED CARE AT APPROX 1915. IS ALERT AND ORIENTED X4. PLEASANT, COOPERATIVE WITH CARE. ABLE TO COMMUNICATE NEEDS EFFECTIVELY NEEDED. VSS. TELEMETRY SHOWING SINUS TACH, 100's-110's. IS AFEBRILE. IS ON ROOM AIR, SATS >90%. FREQUENT, PRODUCTIVE COUGH. COPIOUS SECRETIONS REQUIRING SUCTION. PATIENT IS ABLE TO SUCTION INDEPENDENTLY NEEDED. DOPHOFF IN PLACE, WNL. VOIDING, USES URINAL INDEPENDENTLY. CALL LIGHT IN REACH.
[2023-02-11 03:51] VITALS: BP 139/94
--- NOTE | 2023-02-11 05:29 | NUR ---
SHIFT SUMMARY NO ACUTE CHANGES SINCE PREVIOUS ASSUMPTION OF CARE. PATIENT SLEPT PERIODICALLY THROUGHOUT SHIFT. REMAINS ALERT AND ORIENTED X4, FORGETFUL AT TIMES. AVASURE MONITOR IN PLACE. VS REMAIN STABLE. BP STABLE. REMAINS ON ROOM AIR, SATS >90%. CONTINUES TO HAVE FREQUENT COUGH WITH THICK SECRETIONS. PINK TINGED SPUTUM NOTED. POSSIBLY DUE TO ROBITUSSIN USE. ABLE TO SUCTION INDEPENDENTLY. DOBHOFF REMAINS PATENT, CONTINUOUS TUBE FEEDING REMAINS IN PLACE. MULTIPLE LOOSE BM's THIS SHIFT. VOIDING. UP IN ROOM WITH SBA FWW. CALL LIGHT IN REACH. WILL REPORT TO ONCOMING RN.
--- NOTE | 2023-02-11 06:45 | NUR ---
UPDATE CALL PLACED TO HOSPITALIST REGARDING PATIENT'S DOBHOFF BEING PULLED OUT. D/T PATIENT HAVING SPEECH REEVALUATION THIS MORNING, NO ORDER TO REPLACE DOBHOFF AT THIS TIME.
--- NOTE | 2023-02-11 06:47 | NUR ---
0600 - THIS RN RECEIVED CALL FROM [employer] - NOTIFIED PT SITTING UP ON SIDE OF BED. ENTERED ROOM PROMPTLY AND NOTED DOBHOFF ON THE FLOOR, PT COVERED IN TUBE FEEDING. O2 SATS WNL, NO ACUTE DISTRESS NOTED. PT GOWN AND BEDDING CHANGE, ASSISTED TO CHAIR WITH CHAIR ALARM IN PLACE. NOTIFIED PRIMARY RNS - JANELLE ARAUJO AND ANIKA VINSON.
[2023-02-11 07:39] VITALS: BP 147/103
[2023-02-11 09:28] VITALS: BP 154/99
[2023-02-11 11:45] VITALS: BP 130/95
[2023-02-11 15:21] VITALS: BP 128/91
--- NOTE | 2023-02-11 17:22 | NUR ---
SHIFT SUMMARY/TRANSFER NOTE PT AOX2-4, IT EBS AND FLOWS. AT TIMES HE IS ABLE TO ANSWER QUESTIONS APPROPRIATELY BUT AT OTHER TIMES, HIS SENTENCES AND WORD CHOICES DO NOT MAKE SENSE. HE IS A 1 ASSIST WITH THE FWW TO THE BATHROOM, HE NEEDS SOME ASSISTANCE WITH THE URINAL. INDEPENDENT SUCTION FOR THICK SPUTUM HE COUGHS UP. MEDICATED FOR PAIN PER THE EMAR THIS SHIFT. NPO AWAITING ANOTHER BARIUM SWALLOW STUDY TOMORROW FOR POSSIBLE PEG TUBE PLACEMENT. HE CAN ONLY HAVE ICE CHIPS. AT THE BS THIS EVENING. BREATHING TX'S AVAILABLE PRN. IV INFUSING NS AT 50. CAMERA DISCONTINUED BUT BED/CHAIR ALARMS ACTIVE. PT TRANSFERRED TO MEDICAL FLOOR, REPORT GIVEN TO TRUDY MATOS. TAKEN TO THE ROOM BY UX DESIGNER'S.
--- NOTE | 2023-02-11 18:31 | NUR ---
PT ARRIVED TO FLOOR AOX4 ABLE TO BE ONE PERSON WITH WALKER TO RESTROOM. PT HAS BED ALARM IN PLACE HE WAS REPORTED TO BE IMPULSIVE AT TIMES. CALL LIGHT IS IN REACH WILL CONTINUE TO MONITOR.
[2023-02-11 19:40] VITALS: BP 134/87
[2023-02-12 03:07] VITALS: BP 154/90
--- NOTE | 2023-02-12 04:05 | NUR ---
SHIFT SUMMARY; NO ACUTE CHANGES OVERNIGHT. THE PT IS AXO X3-4, SPEECH IS MUMBLED. THE PT HAS BEEN RESTING IN BED T/O THE NIGHT. THE PT HAS USED THE CALL LIGHT A COUPLE TIMES FOR HELP AMBULATING TO THE BATHROOM. THE PT HAS BEEN INCONTINENT AND CONTINENT OF BOWEL AND BLADDER THIS PM. PT REMAINS NPO, REPEAT ST EVAL LATER THIS AM. THE PT DENIES ANY SOB, CHEST PAIN/PRESSURE OR N/V. CURRENTLY THE PT IS SLEEPING IN BED WITH THE BED IN THE LOWEST POSITION AND THE CALL LIGHT AT BEDSIDE. ALL 4 BED RAILS UP PER PT REQUEST, PT STATES THEY HELP HIM FEEL LIKE HES NOT FALLING BECAUSE WHEN HE ROLLS OVER HIS LEGS DONT GO OVER THE EDGE OF THE BED. FIRE SAFETY MAINTAINED T/O THE NIGHT.
[2023-02-12 05:41] LABS: Hematocrit 28.5 % (37.0-53.0); Hemoglobin 9.5 g/dL (13.5-17.5); Mean Corpuscular HGB 32.9 pg (26.0-34.0); Mean Corpuscular HGB Conc 33.3 g/dL (31.5-36.5); Mean Corpuscular Volume 99 fL (80-100); Mean Platelet Volume 9.9 fL (9.1-12.4); Platelet Count 164 K/mm3 (150-400); RDW Standard Deviation 54.7 fL (35.1-46.3); Red Blood Cell Count 2.89 M/mm3 (4.30-5.90); White Blood Cell Count 7.15 K/mm3 (4.00-11.30)
[2023-02-12 06:15] LABS: Albumin, Blood 1.9 g/dL (3.4-5.0); Anion Gap 4 mmol/L (6-16); Blood Urea Nitrogen 16 mg/dL (8-24); Bun/Creatinine Ratio 17.9 (12.0-20.0); CO2, Blood 25 mmol/L (21-32); Chloride, Blood 108 mmol/L (98-108); Creatinine, Blood 0.89 mg/dL (0.60-1.20); Glomerular Filtration Rate 98 (60-); Glucose, Blood 84 mg/dL (70-99); Magnesium, Blood 1.7 mg/dL (1.6-2.4); Phosphorus, Blood 3.2 mg/dL (2.5-4.9); Potassium, Blood 4.3 mmol/L (3.5-5.5); Sodium, Blood 137 mmol/L (136-145)
[2023-02-12 07:37] VITALS: BP 136/95
[2023-02-12 15:50] VITALS: BP 136/85
[2023-02-12] MEDS ORDERED: EUTHYROX175 MCG PO (18:02)
[2023-02-12] MEDS ORDERED: ALDACTONE25 MG PO (18:03)
--- NOTE | 2023-02-12 18:38 | NUR ---
PT DISCHARGE AT 1630 WITH ALL PERSONAL BELONGINGS. PT IS MUCH MORE ALERT THIS AFTERNOON AND HAS BEEN ADVOCATING HIS RELEASE. PT HAS BEEN EDUCATED ON BEING VERY CAREFUL EATING ALL FOOD AND AMBULATION. PT HAD SIGNIFICANT OTHER TO TRANSPORT HIM HOME. PAPERWORK REVIEWED AND EDUCATIONAL MATERIAL SENT WITH PT. PT ESCORTED OUT VIA WHEEL CHAIR.
== END 2023-02-12 18:36 | disposition home health service (06) | DRG 551 ==
LOC: ER 19:39 → MEDS 19:40 → ICUE 01-27 14:12 → MEDS 01-27 14:12 → PCU 01-27 14:12 → MEDS 01-27 17:44 → ICUE 01-27 23:30 → PCU 02-06 15:41 → MEDS 02-11 17:15
PROVIDERS: Emergency Medicine; Hospitalist; Internal Medicine; Internal Medicine Critical Care Medicine; Student in an Organized Health Care Education/Training Program; ADMIT Internal Medicine
PROC: 0DH67UZ Insertion of Feeding Device into Stomach, Via Natural or Artificial Opening (ICD-10-PCS; principal; 2023-01-27)
PROC: 4A033R1 Measurement of Arterial Saturation, Peripheral, Percutaneous Approach (ICD-10-PCS; 2023-01-27)
PROC: 5A09357 Assistance with Respiratory Ventilation, Less than 24 Consecutive Hours, Continuous Positive Airway Pressure (ICD-10-PCS; 2023-01-27)
PROC: HZ2ZZZZ Detoxification Services for Substance Abuse Treatment (ICD-10-PCS; 2023-01-27)
DX: M54.9 Dorsalgia, unspecified (principal); G92.8 Other toxic encephalopathy; J69.0 Pneumonitis due to inhalation of food and vomit; N17.0 Acute kidney failure with tubular necrosis; J96.01 Acute respiratory failure with hypoxia; R18.8 Other ascites; F10.231 Alcohol dependence with withdrawal delirium; I67.89 Other cerebrovascular disease; R78.81 Bacteremia; E87.1 Hypo-osmolality and hyponatremia; E51.2 Wernicke's encephalopathy; E87.20 Acidosis, unspecified; E87.0 Hyperosmolality and hypernatremia; R14.0 Abdominal distension (gaseous); G31.2 Degeneration of nervous system due to alcohol; K70.0 Alcoholic fatty liver; H57.02 Anisocoria; H53.2 Diplopia; R13.10 Dysphagia, unspecified; E83.39 Other disorders of phosphorus metabolism; R00.0 Tachycardia, unspecified; J45.909 Unspecified asthma, uncomplicated; I10 Essential (primary) hypertension; F32.A Depression, unspecified; B95.61 Methicillin susceptible Staphylococcus aureus infection as the cause of diseases classified elsewhere; W17.81XA Fall down embankment (hill), initial encounter; D69.6 Thrombocytopenia, unspecified; K59.00 Constipation, unspecified; E86.0 Dehydration; F41.9 Anxiety disorder, unspecified; I95.9 Hypotension, unspecified; D50.9 Iron deficiency anemia, unspecified; E88.09 Other disorders of plasma-protein metabolism, not elsewhere classified; E80.6 Other disorders of bilirubin metabolism; Z11.52 Encounter for screening for COVID-19; Z79.899 Other long term (current) drug therapy; Z79.890 Hormone replacement therapy; Z98.890 Other specified postprocedural states
CPT/HCPCS: 0241U; 31720; 36415; 36600; 70450; 71045; 72148; 73721; 74175; 74230; 76700; 80048; 80053; 80069; 80202; 81001; 82140; 82565; 82803; 83605; 83615; 83690; 83735; 83880; 84100; 84134; 84145; 84300; 85014; 85018; 85025; 85027; 85610; 85651; 85730; 86850; 86900; 86901; 87040; 87070; 87077; 87086; 87147; 87186; 87205; 92526; 92610; 92611; 93005; 93010; 93306; 94640; 94660; 94760; 94762; 96361; 96372; 96374; 96375; 96375-59; 96376; 96376-59; 97110; 97116; 97161; 97166; 97530; 97535; 99285-25; A9270; G0378; J0360; J0690; J1170; J1200; J1630; J1650; J1790; J1885; J1940; J2060; J2310; J2405; J2920; J3010; J3370; J3411; J3475; J7030; J7040; J7042; J7050; J7060; J7120; P9047; Q9967